=== PATIENT | female | born 1970 | race Caucasian/White ===

== ENCOUNTER 2019-11-13 19:29 | Observation (INO) | payer MEDICARE, OTHER ==
[2019-11-13] MEDS ORDERED: ASPIRIN 81 MG PO STA (19:46)
[2019-11-13] MEDS ORDERED: SODIUM CHLORIDE 0.9% 1,000 ML IV ONE (19:47)
--- NOTE | 2019-11-13 19:53 | ED ---
General Adult HPI - General Chief complaint: Chest Pain Stated complaint: Chest Pain Time Seen by Provider: 11/13/19 19:33 Source: patient, EMS Mode of arrival: EMS Limitations: no limitations - History of Present Illness Initial comments: Patient presents the ED by ambulance for evaluation. Patient states that she has had intermittent rapid heart palpitations for the past 2 days, and she states that she has had associated chest "discomfort". Patient denies having any "pain". Patient admits to feeling mildly dyspneic as well. Patient appears to be intoxicated on arrival to the ED, and she admits to drinking alcohol tonight, stating that she has been "celebrating Robinson" with her family. Patient denies trauma or injury, fever or chills, headache, focal numbness/weakness/neuro deficit, neck/arm/jaw/back pain, pleuritic pain, cough or cold symptoms, palpitations, dizziness, nausea or vomiting, abdominal pain, diarrhea, urinary symptoms, leg or calf swelling or pain, illicit drug use, medication abuse or overdose, or any other symptoms or complaints. - Related Data Allergies Allergy/AdvReac Type Severity Reaction Status Date / Time Penicillins Allergy Severe Swelling Verified 11/13/19 20:07 metoclopramide [From Reglan] Allergy Mild Unknown Verified 11/13/19 20:09 buspirone Allergy Unknown Verified 11/13/19 20:10 codeine Allergy Unknown Verified 11/13/19 20:10 varenicline [From Chantix] Allergy Unknown Verified 11/13/19 20:10 Review of Systems ROS Statement: Those systems with pertinent positive or pertinent negative responses have been documented in the HPI. ROS Other: All systems not noted in ROS Statement are negative. Past Medical History Additional Past Medical History / Comment(s): Right coronary artery dissection, mitochondrial myopathy, seizure disorder Past Surgical History: Heart Catheterization Smoking Status: Current every day smoker Past Alcohol Use History: Occasional Past Drug Use History: None Reported General Exam Limitations: no limitations General appearance: alert, appears intoxicated, anxious, other (Patient smells of alcohol; patient is tearful) Head exam: Present: atraumatic, normocephalic Eye exam: Present: PERRL, EOMI ENT exam: Present: mucous membranes moist Neck exam: Present: other (Trachea is in midline) Respiratory exam: Present: normal lung sounds bilaterally. Absent: respiratory distress, wheezes, rales, rhonchi, chest wall tenderness Cardiovascular Exam: Present: regular rate, normal rhythm, normal heart sounds, other (Normal radial pulses bilaterally) GI/Abdominal exam: Present: soft. Absent: distended, tenderness, guarding Extremities exam: Present: other (Negative Diane's sign bilaterally). Absent: tenderness, pedal edema, calf tenderness Neurological exam: Present: alert, oriented X3. Absent: motor sensory deficit Psychiatric exam: Present: anxious Skin exam: Present: warm, dry, intact, normal color Course Vital Signs 11/13/19 19:32 Temperature 98.5 F Pulse Rate 92 Respiratory 18 Rate Blood Pressure 182/123 O2 Sat by Pulse 94 L Oximetry - Reevaluation(s) Reevaluation #1: 11/13/19 20:25 Case, H&P, test results and ED management thus far were discussed with Dr. Key who is currently in the ED. He accepts observational admission. He has no f urther recommendations at this time. 11/13/19 20:35 Patient denies vomiting of any new symptoms while in the ED. Patient remains alert and breathing comfortably with a normal room air oxygen saturation. Patient remains in normal sinus rhythm on the hospital monitor. Patient is aware of her test results, and she agrees with hospital admission at this time. EKG Findings - EKG Comments: EKG Findings:: Normal sinus rhythm, ventricular rate of 92 bpm, no ectopy, normal MD and QRS intervals, normal QT interval, normal axis, no ST or T-wave abnormality Medical Decision Making - Medical Decision Making Given the patient's reported palpitations and chest discomfort, will admit the patient the hospital for cardiac monitoring and serial troponins. Patient's initial troponin the ED is negative. Patient's EKG, labs and chest x-ray are all fairly unremarkable. Patient agrees with this plan, and Dr. Key has accepted hospital admission. - Lab Data Result diagrams: 11/13/19 19:48 11/13/19 19:48 Lab Results 11/13/19 11/13/19 11/13/19 Range/Units 19:48 19:48 19:48 WBC 8.7 (3.8-10.6) k/uL RBC 4.91 (3.80-5.40) m/uL Hgb 15.0 (11.4-16.0) gm/dL Hct 46.6 H (34.0-46.0) % MCV 94.9 (80.0-100.0) fL MCH 30.7 (25.0-35.0) pg MCHC 32.3 (31.0-37.0) g/dL RDW 13.6 (11.5-15.5) % Plt Count 237 (150-450) k/uL Neutrophils % 61 % Lymphocytes % 29 % Monocytes % 5 % Eosinophils % 3 % Basophils % 1 % Neutrophils # 5.3 (1.3-7.7) k/uL Lymphocytes # 2.5 (1.0-4.8) k/uL Monocytes # 0.4 (0-1.0) k/uL Eosinophils # 0.2 (0-0.7) k/uL Basophils # 0.1 (0-0.2) k/uL PT 9.7 (9.0-12.0) sec INR 0.9 (<1.2) APTT 25.1 (22.0-30.0) sec Sodium 142 (137-145) mmol/L Potassium 4.0 (3.5-5.1) mmol/L Chloride 110 H (98-107) mmol/L Carbon Dioxide 20 L (22-30) mmol/L Anion Gap 12 mmol/L BUN 11 (7-17) mg/dL Creatinine 0.84 (0.52-1.04) mg/dL Est GFR (CKD-EPI)AfAm >90 (>60 ml/min/1.73 sqM) Est GFR (CKD-EPI)NonAf 81 (>60 ml/min/1.73 sqM) Glucose 95 (74-99) mg/dL Calcium 9.6 (8.4-10.2) mg/dL Magnesium 2.0 (1.6-2.3) mg/dL Total Bilirubin 0.4 (0.2-1.3) mg/dL AST 49 H (14-36) U/L ALT 21 (4-34) U/L Alkaline Phosphatase 73 (38-126) U/L Total Protein 7.2 (6.3-8.2) g/dL Albumin 4.4 (3.5-5.0) g/dL Serum Alcohol 46 mg/dL - Radiology Data Radiology results: image reviewed (Chest x-ray is negative) Disposition Clinical Impression: Chest pain, Palpitations, Alcohol abuse Disposition: ADMITTED IP TO THIS HOSP Condition: Stable Is patient prescribed a controlled substance at d/c from ED?: No Referrals: Kvng Rm MD [Primary Care Provider] - 1-2 days Time of Disposition: 20:25
[2019-11-13 20:12] LABS: Basophils # (A) 0.1 k/uL (0-0.2); Basophils % (A) 1 %; Eosinophils # (A) 0.2 k/uL (0-0.7); Eosinophils % (A) 3 %; HCT 46.6 % (34.0-46.0); Lymphocytes # (A) 2.5 k/uL (1.0-4.8); Lymphocytes % (A) 29 %; MCH 30.7 pg (25.0-35.0); MCHC 32.3 g/dL (31.0-37.0); MCV 94.9 fL (80.0-100.0); Mean Platelet Volume 8.1; Monocytes # (A) 0.4 k/uL (0-1.0); Monocytes % (A) 5 %; Neutrophils # (A) 5.3 k/uL (1.3-7.7); Neutrophils % (A) 61 %; Platelet Count 237 k/uL (150-450); RBC 4.91 m/uL (3.80-5.40); RDW 13.6 % (11.5-15.5); WBC 8.7 k/uL (3.8-10.6)
[2019-11-13 20:17] LABS: ALT 21 U/L (4-34); AST 49 U/L (14-36); African American GFR (CKD) >90 (>60 ml/min/1.73 sqM); Albumin 4.4 g/dL (3.5-5.0); Alcohol 46 mg/dL; Alkaline Phosphatase 73 U/L (38-126); Anion Gap 12 mmol/L; Blood Urea Nitrogen 11 mg/dL (7-17); Calcium 9.6 mg/dL (8.4-10.2); Carbon Dioxide 20 mmol/L (22-30); Chloride 110 mmol/L (98-107); Glucose 95 mg/dL (74-99); Non-African American GFR(CKD) 81 (>60 ml/min/1.73 sqM); Sodium 142 mmol/L (137-145); Total Bilirubin 0.4 mg/dL (0.2-1.3); Total Protein 7.2 g/dL (6.3-8.2)
[2019-11-13 20:23] LABS: INR 0.9 (<1.2); Partial Thromboplastin Time 25.1 sec (22.0-30.0); Prothrombin Time 9.7 sec (9.0-12.0)
--- NOTE | 2019-11-13 20:30 | XR ---
EXAMINATION TYPE: XR chest 2V DATE OF EXAM: 11/13/2019 COMPARISON: NONE HISTORY: Chest pain TECHNIQUE: 2 views FINDINGS: Heart and mediastinum are normal. Lungs are clear. Diaphragm is normal. Bony thorax appears normal. IMPRESSION: Normal chest
[2019-11-13] MEDS ORDERED: SODIUM CHLORIDE 0.9% 1,000 ML IV SCH (20:45)
[2019-11-14 00:01] VITALS: RESP 18
[2019-11-14] MEDS ORDERED: SYMBICORT 160-4.5 MCG INHALER INHALATION PRN (01:15)
[2019-11-14] MEDS ORDERED: ALPRAZolam 0.5 MG TAB PO PRN (01:15)
--- NOTE | 2019-11-14 01:17 | P.HPIM ---
History of Present Illness H&P Date: 11/14/19 Patient is a 49-year-old female with a PMH of mitochondrial myopathy, right coronary artery dissection (March 2018), seizure disorder, HTN, anxiety, and depression presented to the ED with complaints of palpitations and chest discomfort ongoing for the past 2-3 days. Patient notes that her symptoms s tarted roughly 3 days ago when she began having intermittent palpitations. The palpitations would last for a few minutes at a time, occurring every few hours and were not bothersome initially. Patient states that earlier tonight she was celebrating [place] with her family and noted left-sided chest discomfort, pressure-like, nonradiating, with some associated shortness of breath, though sh e notes it could be due to her anxiety. She otherwise denied cough, fever, chills, abdominal pain, nausea, diaphoresis, dizziness, headaches, neck pain, recent travel. The patient reports drinking only on social occasions, roughly once a month with 2-3 shots. She reports having 3 shots of alcohol earlier tonight. At time of interview, she reported 2-3 out of 10 left-sided chest discomfort with no associated features. She underwent an extensive elevation in the emergency room with chest x-ray which was unremarkable, and EKG showing normal sinus rhythm at 92 bpm. Laboratory evaluation revealed a troponin level less than 0.012, BNP 633, serum alcohol level 46, WBC count 8.7, hemoglobin 15, and platelets 237. She was admitted to the medicine service under observation status for chest pain. Review of Systems Pertinent positives and negatives as discussed in HPI, a complete review of systems was performed and all other systems are negative. Past Medical History Past Medical History: Myocardial Infarction ([place]) Additional Past Medical History / Comment(s): Right coronary artery dissection, mitochondrial myopathy, seizure disorder, Malignant Hyperthermia Last Myocardial Infarction Date:: 2017 History of Any Multi-Drug Resistant Organisms: None Reported Past Surgical History: Heart Catheterization Past Anesthesia/Blood Transfusion Reactions: Malignant Hyperthermia Additional Past Anesthesia/Blood Transfusion Reaction / Comment(s): MALIGNANT HYPERTHERMIA Past Psychological History: Depression Smoking Status: Current every day smoker Past Alcohol Use History: Occasional Past Drug Use History: None Reported Medications and Allergies Home Medications Medication Instructions Recorded Confirmed Type ALPRAZolam [Xanax] 0.5 mg PO BID PRN 11/13/19 11/13/19 History Budesonide-Formot 160-4.5 Mcg 2 puff INHALATION RT-BID PRN 11/13/19 11/13/19 History [Symbicort 160-4.5 Mcg Inhaler] DULoxetine HCL [Cymbalta] 60 mg PO DAILY 11/13/19 11/13/19 History Ezetimibe [Zetia] 10 mg PO DAILY 11/13/19 11/13/19 History Famotidine [Pepcid] 20 mg PO BID 11/13/19 11/13/19 History Fluticasone Nasal [place] [Flonase 1 spray EA NOSTRIL DAILY PRN 11/13/19 11/13/19 History Nasal [place]] Folic Acid 1 mg PO DAILY 11/13/19 11/13/19 History Lisinopril 40 mg PO DAILY 11/13/19 11/13/19 History Metoprolol Tartrate [Lopressor] 50 mg PO BID 11/13/19 11/13/19 History Pregabalin [Lyrica] 150 mg PO BID 11/13/19 11/13/19 History levETIRAcetam 1,000 mg PO Q12HR 11/13/19 11/13/19 History levOCARNitine [Levocarnitine] 330 mg PO TID 11/13/19 11/13/19 History Allergies Allergy/AdvReac Type Severity Reaction Status Date / Time Penicillins Allergy Severe Swelling Verified 11/13/19 20:54 metoclopramide [From Reglan] Allergy Mild Unknown Verified 11/13/19 20:54 buspirone Allergy Unknown Verified 11/13/19 20:54 codeine Allergy Unknown Verified 11/13/19 20:54 varenicline [From Chantix] Allergy Unknown Verified 11/13/19 20:54 Physical Exam Vitals: Vital Signs Temp Pulse Pulse Resp BP BP Pulse Ox 11/14/19 00:00 97.6 F 70 18 172/89 95 11/13/19 22:10 97.7 F 72 16 164/113 96 11/13/19 20:59 85 18 160/101 98 11/13/19 20:46 97.7 F 72 16 96 11/13/19 19:32 98.5 F 92 18 182/123 94 L Intake and Output 11/13/19 11/13/19 11/14/19 14:59 22:59 06:59 Intake Total 240 Balance 240 Intake: Oral 240 Other: # Voids 1 Weight 80.739 kg General: non toxic, no distress, appears at stated age, obese Derm: no unusual rashes/lesions no unusual ecchymoses, warm, dry Head: atraumatic, normocephalic, symmetric Eyes: EOMI, no lid lag, anicteric sclera, pupils equal round reactive to light ENT: Nose and ears atraumatic, no thrush, no pharyngeal erythema Neck: No thyromegaly, no cervical lymphadenopathy, trachea midline, supple Mouth: no lip lesion, mucus membranes moist Cardiovascular: S1S2 reg, no murmur, positive posterior tibial pulse bilateral, no edema, capillary refill less than 2 seconds Lungs: CTA bilateral, no rhonchi, no rales , no accessory muscle use Abdominal: soft, nontender to palpation, no guarding, no appreciable organomegaly, normal bowel sounds Ext: no gross muscle atrophy, muscle strength 5 out of 5 in all 4 extremities grossly, no contractures, Neuro: CN II-XI grossly intact, light touch intact all 4 extremities, finger to nose within normal limits, Psych: Alert, oriented, appropriate affect Results CBC & Chem 7: 11/13/19 19:48 11/13/19 19:48 Labs: Abnormal Lab Results - Last 24 Hours (Table) 11/13/19 11/13/19 Range/Units 19:48 19:48 Hct 46.6 H (34.0-46.0) % Chloride 110 H (98-107) mmol/L Carbon Dioxide 20 L (22-30) mmol/L AST 49 H (14-36) U/L Thrombosis Risk Factor Assmnt - Choose All That Apply Any of the Below Risk Factors Present?: Yes Each Factor Represents 1 point: Age 41-60 years, Obesity (BMI >25) Thrombosis Risk Factor Assessment Total Risk Factor Score: 2 Thrombosis Risk Factor Assessment Level: Low Risk Assessment and Plan Plan: Chest pain, r/o ACS -Cardiology consult -Cardiac monitoring -Trend troponin and EKG -Echocardiogram Mitochondrial myopathy -Patient will need outpatient follow-up at a tertiary center Chronic conditions: Seizure disorder, hypertension, anxiety -Continue with home meds DVT prophylaxis -Heparin The patient is admitted with an anticipated less than 2 midnight stay for evaluation of chest pain CODE STATUS: Full Code Discussed with: Patient Anticipated discharge date: 1-[address]: Home A total of 35 minutes was spent on the care of this complex patient more than 50% of the time was spent in counseling and care coordination.
[2019-11-14] MEDS ORDERED: ONDANSETRON 4 MG/2 ML VIAL IVP PRN (01:42)
[2019-11-14 07:33] LABS: Basophils # (A) 0.1 k/uL (0-0.2); Basophils % (A) 1 %; Eosinophils # (A) 0.2 k/uL (0-0.7); Eosinophils % (A) 3 %; HCT 46.5 % (34.0-46.0); Lymphocytes # (A) 1.7 k/uL (1.0-4.8); Lymphocytes % (A) 22 %; MCH 31.2 pg (25.0-35.0); MCHC 32.2 g/dL (31.0-37.0); MCV 96.9 fL (80.0-100.0); Mean Platelet Volume 8.2; Monocytes # (A) 0.4 k/uL (0-1.0); Monocytes % (A) 5 %; Neutrophils % (A) 66 %; Platelet Count 258 k/uL (150-450); RDW 13.7 % (11.5-15.5); WBC 7.5 k/uL (3.8-10.6)
[2019-11-14 07:40] VITALS: BP 144/105; PULSE 81; TEMP 98.2
[2019-11-14 07:57] LABS: ALT 20 U/L (4-34); AST 32 U/L (14-36); African American GFR (CKD) >90 (>60 ml/min/1.73 sqM); Albumin 3.9 g/dL (3.5-5.0); Alkaline Phosphatase 70 U/L (38-126); Anion Gap 8 mmol/L; Blood Urea Nitrogen 14 mg/dL (7-17); Calcium 9.4 mg/dL (8.4-10.2); Carbon Dioxide 20 mmol/L (22-30); Chloride 112 mmol/L (98-107); Glucose 96 mg/dL (74-99); Non-African American GFR(CKD) >90 (>60 ml/min/1.73 sqM); Potassium 4.7 mmol/L (3.5-5.1); Sodium 140 mmol/L (137-145); Total Bilirubin 0.5 mg/dL (0.2-1.3); Total Protein 6.8 g/dL (6.3-8.2)
[2019-11-14] MEDS ORDERED: HEPARIN SODIUM,PORCINE 5,000 UNIT/ML 1 ML VIAL SQ SCH (08:00)
[2019-11-14] MEDS ORDERED: PREGABALIN 75 MG CAP PO SCH (09:00)
[2019-11-14] MEDS ORDERED: levOCARNitine (WITH SUGAR) 100 MG/ML BOTTLE PO SCH (09:00)
[2019-11-14] MEDS ORDERED: METOPROLOL TARTRATE 50 MG TAB PO SCH (09:00)
[2019-11-14] MEDS ORDERED: EZETIMIBE 10 MG TAB PO SCH (09:00)
[2019-11-14] MEDS ORDERED: DULoxetine HCL 60 MG CAPSULE.DR PO SCH (09:00)
[2019-11-14] MEDS ORDERED: FOLIC ACID 1 MG TAB PO SCH (09:00)
[2019-11-14] MEDS ORDERED: LISINOPRIL 20 MG TAB PO SCH (09:00)
[2019-11-14] MEDS ORDERED: FAMOTIDINE 20 MG TAB PO SCH (09:00)
[2019-11-14] MEDS ORDERED: levETIRAcetam 500 MG TAB PO SCH (09:00)
[2019-11-14] MEDS ORDERED: FLUTICASONE 50MCG/SPRAY NASAL 16GM EA NOSTRIL PRN (09:00)
[2019-11-14] MEDS ORDERED: ASPIRIN 81 MG PO SCH (09:30)
[2019-11-14] MEDS ORDERED: HYDROCHLOROTHIAZIDE 25 MG TAB PO SCH (09:30)
--- NOTE | 2019-11-14 21:55 | CONS ---
CONSULTATION Mrs. Page is a 49-year-old female with known history of hypertension, history of hyperlipidemia, tobacco use and sudden coronary dissection last year. At that time underwent cardiac catheterization at [facility], was found to have a coronary dissection in the right coronary artery, was treated medically. Yesterday, she has had episode of discomfort, left-sided, and noted that her blood pressure was elevated, came into the emergency room and subsequently admitted. The patient is quite anxious and teary during the examination. She has been followed by Dr. Hancock. According to her when she is active physically she feels okay, although at times she is dyspneic at rest. She has occasional peripheral edema. No dizziness. No palpitation. No nausea. She has occasional palpitations. She has a long-standing history of hypertension. She has no PND or orthopnea. She is not quite sure if she had significant impairment in the systolic function after her event about a year and half ago. Her coronary risk factors are positive for the history of hypertension, hyperlipidemia, and smoking. She is a non diabetic. MEDICATION: Her medications at home include Lyrica, Pepcid, Symbicort, Xanax, Lopressor 50 mg twice a day, Keppra, lisinopril 40 mg daily, Zetia 10 mg daily, and Cymbalta 60 mg daily. REVIEW OF SYSTEMS: Respiratory system: She has mild dyspnea on exertion. No recent wheezing or cough. GI system: No recent GI bleed, no peptic ulcer disease. system: No dysuria, hematuria. Nervous system: She has history of seizure. PHYSICAL EXAMINATION: 49-year-old female, teary, anxious. Blood pressure 144/105, blood pressure earlier it was in the 170s. Heart rate in 70s. HEAD: Normocephalic. EYES: Sclerae anicteric. NECK: Good carotid upstroke, no bruit. No jugular venous distention. LUNGS: Clear to auscultation. HEART: Regular rhythm. S1, S2. No S3. No S4. No murmur or rub. ABDOMEN: Soft, nontender. Positive bowel sounds. No megaly. EXTREMITIES: No edema. Intact pulses. LAB DATA: Revealed troponin less than 0.012 for 3 samples. BUN and creatinine 14 and 0.71. Hemoglobin of 15, white blood cell of 7.5. Her serum alcohol is 46. Her EKG revealed a sinus mechanism, normal axis, intervals with minor nonspecific ST-T wave changes. Her chest x-ray shows no acute infiltrate. IMPRESSION: 1. Chest discomfort atypical for ischemic heart disease, probably noncardiac. 2. History of spontaneous dissection of the right coronary artery in March 2018. 3. Hypertension. 4. Anxiety. 5. History of seizure disorder. RECOMMENDATION: From the cardiac standpoint, I will add hydrochlorothiazide 25 mg daily to her regimen, increase her level of activity. If she is stable, she should be able to be discharged home today and follow up as an outpatient with Dr. Hancock. Thank you for this consult. We will follow with you. [id number] / IJN: [id number] /
--- NOTE | 2019-12-12 20:47 | P.DS ---
Providers Date of admission: 11/13/19 20:33 Expected date of discharge: 11/14/19 Attending physician: Farheen Key MD Consults: 11/13/19 21:30 Consult Physician Urgent Consulting Provider: Scott Vanegas Consult Reason/Comments: chest pain, palpitations Do you want consulting provider notified?: Yes Primary care physician: Kvng Rm [facility] Course: diagnosis discharge diagnoses Atypical chest pain Essential hypertension Anxiety History of seizure disorder History of dissection of right coronary artery Hospital course The patient is a 49 year old female with a known history of hypertension hyperlipidemia and tobacco use disorder who presented with atypical chest pain inobservation with need to rule out ACS, troponins were less than 0.0123, EKG reveals sinus mechanism with minor nonspecific ST-T wave changes, the patient was seen by Dr. Christopher brooke cardiology and cleared for discharge. HCTZ was added to her and hypertensive regimen and she was discharged home in stable condition, this discharge process took approximately 30 minutes Focused exam Cardiovascular : Regular rate and rhythm no murmurs rubs or gallops Patient Condition at Discharge: Stable Plan - Discharge Summary Discharge Rx Participant: No New Discharge Prescriptions: Continue Pregabalin [Lyrica] 150 mg PO BID Folic Acid 1 mg PO DAILY Budesonide-Formot 160-4.5 Mcg [Symbicort 160-4.5 Mcg Inhaler] 2 puff INHALATION RT-BID PRN PRN Reason: Shortness Of Breath Metoprolol Tartrate [Lopressor] 50 mg PO BID levOCARNitine [Levocarnitine] 330 mg PO TID levETIRAcetam 1,000 mg PO Q12HR Lisinopril 40 mg PO DAILY Fluticasone Nasal [place] [Flonase Nasal [place]] 1 spray EA NOSTRIL DAILY PRN PRN Reason: Nasal Congestion Famotidine [Pepcid] 20 mg PO BID Ezetimibe [Zetia] 10 mg PO DAILY DULoxetine HCL [Cymbalta] 60 mg PO DAILY ALPRAZolam [Xanax] 0.5 mg PO BID PRN PRN Reason: Anxiety Discharge Medication List ALPRAZolam [Xanax] 0.5 mg PO BID PRN 11/13/19 [History] Budesonide-Formot 160-4.5 Mcg [Symbicort 160-4.5 Mcg Inhaler] 2 puff INHALATION RT-BID PRN 11/13/19 [History] DULoxetine HCL [Cymbalta] 60 mg PO DAILY 11/13/19 [History] Ezetimibe [Zetia] 10 mg PO DAILY 11/13/19 [History] Famotidine [Pepcid] 20 mg PO BID 11/13/19 [History] Fluticasone Nasal [place] [Flonase Nasal [place]] 1 spray EA NOSTRIL DAILY PRN 11/13/19 [History] Folic Acid 1 mg PO DAILY 11/13/19 [History] Lisinopril 40 mg PO DAILY 11/13/19 [History] Metoprolol Tartrate [Lopressor] 50 mg PO BID 11/13/19 [History] Pregabalin [Lyrica] 150 mg PO BID 11/13/19 [History] levETIRAcetam 1,000 mg PO Q12HR 11/13/19 [History] levOCARNitine [Levocarnitine] 330 mg PO TID 11/13/19 [History] Follow up Appointment(s)/Referral(s): Kvng Rm MD [Primary Care Provider] - 1-2 days Lazara Hancock MD [STAFF PHYSICIAN] - 1 Week (office is closed, patient is to call office during office hours and make follow up apointment with HARVEY Hancock ) Patient Instructions/Handouts: Chest Pain (DC) Discharge Disposition: HOME SELF-CARE
== END 2019-11-14 10:38 | disposition home or self-care (01) ==
LOC: EC 19:29 → 1SOBS 20:33
PROVIDERS: ADMIT Internal Medicine; ATTEND Internal Medicine
DX: R07.89 Other chest pain (principal); I10 Essential (primary) hypertension; F41.9 Anxiety disorder, unspecified; G40.909 Epilepsy, unspecified, not intractable, without status epilepticus; Z86.79 Personal history of other diseases of the circulatory system; G71.3 Mitochondrial myopathy, not elsewhere classified; E78.5 Hyperlipidemia, unspecified; F17.200 Nicotine dependence, unspecified, uncomplicated; F32.9 Major depressive disorder, single episode, unspecified; I25.2 Old myocardial infarction; E66.9 Obesity, unspecified; Z68.30 Body mass index [BMI] 30.0-30.9, adult; Z88.0 Allergy status to penicillin; Z88.8 Allergy status to other drugs, medicaments and biological substances; Z88.5 Allergy status to narcotic agent; Z79.899 Other long term (current) drug therapy; Z79.51 Long term (current) use of inhaled steroids; Z88.4 Allergy status to anesthetic agent; Z98.890 Other specified postprocedural states
CPT/HCPCS: 93005 ×2; 96372; 99285; 36415; 83880; 80053 ×2; 83735; 84484 ×2; 85025 ×2; 85610; 85730; 71046; G0378 ×2; G0480; J1644; 80320

== ENCOUNTER 2020-05-21 23:46 | Observation (INO) | payer MEDICARE, OTHER ==
[2020-05-21 23:55] VITALS: RESP 18
--- NOTE | 2020-05-21 23:57 | ED ---
Chest Pain HPI - General Chief Complaint: Chest Pain Stated Complaint: chest pain Time Seen by Provider: 05/21/20 23:51 Source: patient, EMS Mode of arrival: EMS Limitations: no limitations - History of Present Illness Initial Comments: This patient is a 50-year-old woman who transfers here from [facility] to have admission and further evaluation for chest pain. The patient states that her symptoms had started approximately 3 days ago with vomiting and also intermittent substernal chest pains. Patient states that she has history of right coronary artery dissection in 2018, which was treated at [facility]. She states that as the symptoms were continuing without much relief she went to [facility]. The patient had a workup there that included a CT angiogram, read as only showing some emphysema and pulmonary fibrosis. Patient also had labs that showed a CBC that showed mildly elevated hemoglobin at 16.7. Chemistries that showed hypokalemia at 2.6. The BUN to creatinine was mildly elevated, at 21 suggestive of some dehydration. Mildly elevated transaminases, AST 61, ALT 53. The patient did have Rocephin and azithromycin for concerns about pneumonia, though she is denying fevers and chills. The patient did have heparin bolus. The patient had Dilaudid. She is symptom-free here. MD Complaint: chest pain Onset/Timin -: days(s) Onset: during rest Pain Location: substernal Pain Radiation: none Severity: severe Quality: aching Consistency: intermittent Improves With: nothing Worsens With: nothing Anginal Symptoms: nausea, vomiting Treatments Prior to Arrival: nitroglycerin, other (Heparin) - Related Data Home Medications Medication Instructions Recorded Confirmed ALPRAZolam [Xanax] 0.5 mg PO TID PRN 11/13/19 05/22/20 Budesonide-Formot 160-4.5 Mcg 2 puff INHALATION RT-BID PRN 11/13/19 05/22/20 [Symbicort 160-4.5 Mcg Inhaler] DULoxetine HCL [Cymbalta] 60 mg PO DAILY 11/13/19 05/22/20 Ezetimibe [Zetia] 10 mg PO DAILY 11/13/19 05/22/20 Pregabalin [Lyrica] 150 mg PO BID 11/13/19 05/22/20 levETIRAcetam 1,000 mg PO Q12HR 11/13/19 05/22/20 levOCARNitine [Levocarnitine] 330 mg PO TID 11/13/19 05/22/20 Albuterol Sulfate [Albuterol 2 puff INHALATION RT-Q6H PRN 05/22/20 05/22/20 Sulfate Hfa] Aspirin EC [Ecotrin Low Dose] 81 mg PO DAILY 05/22/20 05/22/20 Hydrochlorothiazide [Hydrodiuril] 25 mg PO DAILY 05/22/20 05/22/20 Metoprolol Tartrate [Lopressor] 25 mg PO BID 05/22/20 05/22/20 Nitroglycerin Sl Tabs [Nitrostat] 0.4 mg SUBLINGUAL Q5M PRN 05/22/20 05/22/20 Ondansetron Odt [Zofran Odt] 8 mg PO Q8HR PRN 05/22/20 05/22/20 Pregabalin [Lyrica] 150 mg PO DAILY PRN 05/22/20 05/22/20 Ubidecarenone [Co Q-10] 200 mg PO TID 05/22/20 05/22/20 Allergies Allergy/AdvReac Type Severity Reaction Status Date / Time Penicillins Allergy Severe Swelling Verified 05/22/20 08:56 metoclopramide [From Reglan] Allergy Mild Unknown Verified 05/22/20 08:56 buspirone Allergy Unknown Verified 05/22/20 08:56 codeine Allergy Unknown Verified 05/22/20 08:56 varenicline [From Chantix] Allergy Unknown Verified 05/22/20 08:56 Review of Systems ROS Statement: Those systems with pertinent positive or pertinent negative responses have been documented in the HPI. ROS Other: All systems not noted in ROS Statement are negative. EKG Findings - EKG Comments: EKG Findings:: T inversions in leads 3 and aVF, possible inferior ischemia - EKG Results: EKG: interpreted by ERMD, sinus rhythm (Rate 95 bpm), normal axis, normal QRS - Blocks, [place], Hypertrophy, ST Abn: Repolarization changes or abnormalities: Q-T interval prolongation Past Medical History Past Medical History: Coronary Artery Disease (CAD), Chest Pain / Angina, Myocardial Infarction ([place]) Additional Past Medical History / Comment(s): Right coronary artery dissection, mitochondrial myopathy, seizure disorder, Malignant Hyperthermia Last Myocardial Infarction Date:: 2018 History of Any Multi-Drug Resistant Organisms: None Reported Past Surgical History: Cholecystectomy, Heart Catheterization, Tubal Ligation Additional Past Surgical History / Comment(s): carpal tunnel Past Anesthesia/Blood Transfusion Reactions: Malignant Hyperthermia Additional Past Anesthesia/Blood Transfusion Reaction / Comment(s): MALIGNANT HYPERTHERMIA Past Psychological History: Anxiety, Depression Smoking Status: Current every day smoker Past Alcohol Use History: Abuse, Daily Past Drug Use History: None Reported - Past Family History Father Additional Family Medical History / Comment(s): Myotonia congenita Mother Family Medical History: No Reported History Additional Family Medical History / Comment(s): Grandmother had CVA General Exam Limitations: no limitations General appearance: alert, in no apparent distress Head exam: Present: atraumatic, normocephalic Eye exam: Present: normal appearance. Absent: scleral icterus, conjunctival injection ENT exam: Present: mucous membranes dry Neck exam: Present: normal inspection Respiratory exam: Present: normal lung sounds bilaterally. Absent: respiratory distress, wheezes, rales, rhonchi, stridor Cardiovascular Exam: Present: regular rate, normal rhythm, normal heart sounds. Absent: systolic murmur, diastolic murmur, rubs, gallop GI/Abdominal exam: Present: soft. Absent: distended, tenderness, guarding, rebound, rigid, mass Extremities exam: Present: normal inspection, normal capillary refill. Absent: pedal edema, calf tenderness Back exam: Present: normal inspection. Absent: CVA tenderness (R), CVA tenderness (L) Neurological exam: Present: alert Skin exam: Present: warm, dry, intact, normal color. Absent: rash Course Vital Signs 05/21/20 05/22/20 05/22/20 23:46 02:34 04:17 Temperature 97.8 F Pulse Rate 94 81 84 Respiratory 18 18 18 Rate Blood Pressure 127/88 110/57 114/74 O2 Sat by Pulse 97 99 94 L Oximetry 05/22/20 05/22/20 05/22/20 06:48 07:36 08:14 Temperature 98.1 F Pulse Rate 93 85 Respiratory 18 18 18 Rate Blood Pressure 112/54 129/83 120/78 O2 Sat by Pulse 98 98 99 Oximetry 05/22/20 05/22/20 10:55 14:44 Temperature 98.3 F Pulse Rate 92 104 H Respiratory 18 18 Rate Blood Pressure 124/81 116/100 O2 Sat by Pulse 98 96 Oximetry Chest Pain MDM - MDM This patient is a 50-year-old woman transferred here from [facility]. My understanding is that Dr. Hannon had taken the transfer call and discussed with Dr. Slaughter. If the patient was having any symptoms they were considering taking patient to [facility]. I discussed this with the patient who is adamant that she is not having symptoms. She was reminded to inform nursing staff should symptoms recur. Admission for further monitoring and serial enzymes arranged. Case discussed with cardiology and the patient is admitted for serial cardiac enzymes and telemetry monitoring. Critical Care Time Critical Care Time: Yes (35 minutes) Disposition Clinical Impression: Chest pain Disposition: ADMITTED IP TO THIS HOSP Condition: Undetermined Is patient prescribed a controlled substance at d/c from ED?: No
[2020-05-22 00:06] LABS: Basophils # (A) 0.1 k/uL (0-0.2); Basophils % (A) 1 %; Eosinophils # (A) 0.2 k/uL (0-0.7); Eosinophils % (A) 2 %; HCT 43.7 % (34.0-46.0); HGB 14.6 gm/dL (11.4-16.0); Lymphocytes # (A) 2.6 k/uL (1.0-4.8); Lymphocytes % (A) 27 %; MCH 32.6 pg (25.0-35.0); MCHC 33.5 g/dL (31.0-37.0); MCV 97.3 fL (80.0-100.0); Mean Platelet Volume 8.5; Monocytes # (A) 0.6 k/uL (0-1.0); Monocytes % (A) 6 %; Neutrophils # (A) 6.1 k/uL (1.3-7.7); Neutrophils % (A) 62 %; Platelet Count 243 k/uL (150-450); RBC 4.49 m/uL (3.80-5.40); RDW 13.5 % (11.5-15.5); WBC 9.8 k/uL (3.8-10.6)
[2020-05-22 00:29] LABS: INR 1.1 (<1.2); Prothrombin Time 11.1 sec (9.0-12.0)
[2020-05-22 00:31] LABS: ALT 45 U/L (4-34); AST 55 U/L (14-36); African American GFR (CKD) >90 (>60 ml/min/1.73 sqM); Albumin 3.8 g/dL (3.5-5.0); Alkaline Phosphatase 87 U/L (38-126); Anion Gap 11 mmol/L; Blood Urea Nitrogen 17 mg/dL (7-17); Calcium 9.1 mg/dL (8.4-10.2); Carbon Dioxide 22 mmol/L (22-30); Chloride 103 mmol/L (98-107); Glucose 121 mg/dL (74-99); Magnesium 2.3 mg/dL (1.6-2.3); Non-African American GFR(CKD) 90 (>60 ml/min/1.73 sqM); Sodium 136 mmol/L (137-145); Total Bilirubin 0.3 mg/dL (0.2-1.3); Total Protein 6.7 g/dL (6.3-8.2)
[2020-05-22 00:41] LABS: Partial Thromboplastin Time 125.7 sec (22.0-30.0)
[2020-05-22] MEDS ORDERED: NITROGLYCERIN SL TABS 0.4 MG TAB SUBLINGUAL PRN ×2 (00:58→09:39)
[2020-05-22] MEDS: SODIUM CHLORIDE 0.9% 1,000 ML IV SCH ×2 (01:03→11:06)
[2020-05-22] MEDS ORDERED: ONDANSETRON 4 MG/2 ML VIAL IVP STA (07:41)
[2020-05-22] MEDS ORDERED: PREGABALIN 75 MG CAP PO PRN (09:39)
[2020-05-22] MEDS ORDERED: ONDANSETRON ODT 8 MG TAB.RAPDIS PO PRN (09:39)
[2020-05-22] MEDS ORDERED: ALBUTEROL HFA INHALER INHALATION PRN (09:39)
[2020-05-22] MEDS ORDERED: SYMBICORT 160-4.5 MCG INHALER INHALATION PRN (09:39)
[2020-05-22] MEDS ORDERED: ALPRAZolam 0.5 MG TAB PO PRN (09:39)
[2020-05-22] MEDS ORDERED: METOPROLOL TARTRATE 25 MG TAB PO SCH (09:45)
[2020-05-22] MEDS ORDERED: DULoxetine HCL 60 MG CAPSULE.DR PO SCH (09:45)
[2020-05-22] MEDS ORDERED: EZETIMIBE 10 MG TAB PO SCH (09:45)
[2020-05-22] MEDS ORDERED: PREGABALIN 75 MG CAP PO SCH (09:45)
[2020-05-22] MEDS ORDERED: levETIRAcetam 500 MG TAB PO SCH (09:45)
--- NOTE | 2020-05-22 11:58 | ECHOF ---
Referral Reason:cp, sob, n/v MEASUREMENTS -------- HEIGHT: 162.6 cm WEIGHT: 71.7 kg BP: RVIDd: 2.9 cm (< 3.3) IVSd: 0.8 cm (0.6 - 1.1) LVIDd: 4.3 cm (3.9 - 5.3) LVPWd: 1.0 cm (0.6 - 1.1) IVSs: 1.6 cm LVIDs: 1.9 cm LVPWs: 1.7 cm Ao Diam: 2.6 cm (2.0 - 3.7) AV Cusp: 1.9 cm (1.5 - 2.6) LA Diam: 3.0 cm (2.7 - 3.8) MV EXCURSION: 13.189 mm (> 18.000) MV EF SLOPE: 77 mm/s (70 - 150) EPSS: 0.4 cm MV E Tutu: 0.93 m/s MV DecT: 271 ms MV A Tutu: 0.90 m/s MV E/A Ratio: 1.04 RAP: 5.00 mmHg RVSP: 13.38 mmHg FINDINGS -------- Sinus rhythm. This was a technically good study. The left ventricular size is normal. Left ventricular wall thickness is normal. Overall left vent ricular systolic function is normal with, an EF between 55 - 60 %. The right ventricle is normal in size. The left atrial size is normal. Normal LA size by volume 22+/-6 ml/m2. The right atrial size is normal. The aortic valve is trileaflet and appears structurally normal. The mitral valve is normal. Mild mitral regurgitation is present. The tricuspid valve appears structurally normal. Trace tricuspid regurgitation present. Right china tricular systolic pressure is normal at < 35 mmHg. There is no pulmonic regurgitation present. The aortic root size is normal. Normal inferior vena cava with normal inspiratory collapse consistent with estimated right atrial pre ssure of 5 mmHg. There is no pericardial effusion. CONCLUSIONS -------- 1. Sinus rhythm. 2. This was a technically good study. 3. The left ventricular size is normal. 4. Left ventricular wall thickness is normal. 5. Overall left ventricular systolic function is normal with, an EF between 55 - 60 %. 6. The right ventricle is normal in size. 7. The left atrial size is normal. 8. Normal LA size by volume 22+/-6 ml/m2. 9. The right atrial size is normal. 10. The aortic valve is trileaflet and appears structurally normal. 11. The mitral valve is normal. 12. Mild mitral regurgitation is present. 13. The tricuspid valve appears structurally normal. 14. Trace tricuspid regurgitation present. 15. Right ventricular systolic pressure is normal at < 35 mmHg. 16. There is no pulmonic regurgitation present. 17. The aortic root size is normal. 18. Normal inferior vena cava with normal inspiratory collapse consistent with estimated right atrial pressure of 5 mmHg. 19. There is no pericardial effusion. PRODUCT DEVELOPMENT DIRECTOR: Freda Miranda RDCS
[2020-05-22] MEDS ORDERED: CALCIUM CARBONATE LIQUID 500 MG/5 ML CUP PO SCH (13:27)
[2020-05-22] MEDS ORDERED: ENOXAPARIN 40 MG/0.4 ML SYRINGE SQ SCH (13:30)
[2020-05-22] MEDS ORDERED: PANTOPRAZOLE 40 MG/10 ML VIAL IVP SCH (13:30)
[2020-05-22] MEDS ORDERED: LACTATED RINGERS 1,000 ML IV SCH (13:30)
--- NOTE | 2020-05-22 13:39 | P.CRDCN ---
History of Present Illness History of present illness: HISTORY OF PRESENTING ILLNESS This is a pleasant 50-year-old female past medical history significant for coronary artery disease status post spontaneous dissection of the RCA in that was medically managed at [facility], history of seizures, alcohol abuse, chronic nicotine dependence, dyslipidemia and hypertension. She follows in the office with Dr. Hancock. We have been asked to see in consultation for chest pain. She states for the previous 3 days she has had persistent nausea and vomiting. She states she does continue to have an appetite any desire to eat or drink however every time she takes anything even water she immediately vomits. She is also describing a discomfort in her chest described as a burning stabbing sensation in the midsternal region. It is not associated with activity or exertion but seems to occur after she has vomited. She denies associated shortness of breath, dizziness or palpitations. She is seen and examined resting comfortably lying flat in bed in no acute distress. She has had no vomiting or chest pain since arrival to the emergency department. DIAGNOSTICS EKG reveals sinus mechanism, mild ST depression and T-wave inversion noted inferiorly. Laboratory reviewed, CBC unremarkable, sodium 136, potassium 3.0, creatinine 0.77, magnesium 2.3, ALT 55, AST 45, cardiac enzymes negative 3. Current cardiac medications include that he had 10 mg daily, aspirin 81 mg daily, hydrochlorothiazide 25 mg daily and Lopressor 25 mg twice a day. REVIEW OF SYSTEMS At the time of my exam: CONSTITUTIONAL: Denies fever or chills. CARDIOVASCULAR: Denies chest pain, shortness of breath, orthopnea, PND or palpitations. RESPIRATORY: Denies cough. GASTROINTESTINAL: Denies abdominal pain, diarrhea, constipation, nausea or vomiting. MUSCULOSKELETAL: Denies myalgias. NEUROLOGIC: Denies numbness, tingling or weakness. ENDOCRINE: Denies fatigue, weight change, polydipsia or polyurina. GENITOURINARY: Denies burning, hematuria or urgency with micturation. HEMATOLOGIC: Denies history of anemia or bleeding. PHYSICAL EXAMINATION Blood pressure 124/81 heart rate 92 afebrile and maintaining oxygen saturation on room air. CONSTITUTIONAL: No apparent distress. HEENT: Head is normocephalic. Pupils are equal, round. Sclerae anicteric. Mucous membranes of the mouth are moist. No JVD. No carotid bruit. CHEST EXAMINATION: Lungs are clear to auscultation. No chest wall tenderness is noted on palpation or with deep breathing. HEART EXAMINATION: Regular rate and rhythm. S1, S2 heard. No murmurs, gallops or rub. ABDOMEN: Soft, nontender. Positive bowel sounds. EXTREMITIES: 2+ peripheral pulses, no lower extremity edema and no calf tenderness. NEUROLOGIC EXAMINATION: Patient is awake, alert and oriented x3. ASSESSMENT Chest pain and vomiting for 3 days. An acute event has been ruled out. History of RCA dissection 2018 Hypertension Chronic nicotine dependence Regular alcohol intake PLAN An acute event has been ruled out. Obtain 2D echocardiogram and doppler study to assess cardiac structure and function. Continue to monitor, if she has further chest pain cardiac catheterization will be considered. Thank you kindly for this consultation. Nurse Practitioner note has been reviewed, I agree with a documented findings and plan of care. Patient was seen and examined. Past Medical History Past Medical History: Coronary Artery Disease (CAD), Chest Pain / Angina, Myocardial Infarction ([place]) Additional Past Medical History / Comment(s): Right coronary artery dissection, mitochondrial myopathy, seizure disorder, Malignant Hyperthermia Last Myocardial Infarction Date:: 2017 History of Any Multi-Drug Resistant Organisms: None Reported Past Surgical History: Cholecystectomy, Heart Catheterization, Tubal Ligation Additional Past Surgical History / Comment(s): carpal tunnel Past Anesthesia/Blood Transfusion Reactions: Malignant Hyperthermia Additional Past Anesthesia/Blood Transfusion Reaction / Comment(s): MALIGNANT HYPERTHERMIA Smoking Status: Light tobacco smoker - Past Family History Father Additional Family Medical History / Comment(s): Myotonia congenita Mother Family Medical History: No Reported History Additional Family Medical History / Comment(s): Grandmother had CVA Medications and Allergies Home Medications Medication Instructions Recorded Confirmed Type ALPRAZolam [Xanax] 0.5 mg PO TID PRN 11/13/19 05/22/20 History Budesonide-Formot 160-4.5 Mcg 2 puff INHALATION RT-BID PRN 11/13/19 05/22/20 History [Symbicort 160-4.5 Mcg Inhaler] DULoxetine HCL [Cymbalta] 60 mg PO DAILY 11/13/19 05/22/20 History Ezetimibe [Zetia] 10 mg PO DAILY 11/13/19 05/22/20 History Pregabalin [Lyrica] 150 mg PO BID 11/13/19 05/22/20 History levETIRAcetam 1,000 mg PO Q12HR 11/13/19 05/22/20 History levOCARNitine [Levocarnitine] 330 mg PO TID 11/13/19 05/22/20 History Albuterol Sulfate [Albuterol 2 puff INHALATION RT-Q6H PRN 05/22/20 05/22/20 History Sulfate Hfa] Aspirin EC [Ecotrin Low Dose] 81 mg PO DAILY 05/22/20 05/22/20 History Hydrochlorothiazide [Hydrodiuril] 25 mg PO DAILY 05/22/20 05/22/20 History Metoprolol Tartrate [Lopressor] 25 mg PO BID 05/22/20 05/22/20 History Nitroglycerin Sl Tabs [Nitrostat] 0.4 mg SUBLINGUAL Q5M PRN 05/22/20 05/22/20 History Ondansetron Odt [Zofran Odt] 8 mg PO Q8HR PRN 05/22/20 05/22/20 History Pregabalin [Lyrica] 150 mg PO DAILY PRN 05/22/20 05/22/20 History Ubidecarenone [Co Q-10] 200 mg PO TID 05/22/20 05/22/20 History Allergies Allergy/AdvReac Type Severity Reaction Status Date / Time Penicillins Allergy Severe Swelling Verified 05/22/20 08:56 metoclopramide [From Reglan] Allergy Mild Unknown Verified 05/22/20 08:56 buspirone Allergy Unknown Verified 05/22/20 08:56 codeine Allergy Unknown Verified 05/22/20 08:56 varenicline [From Chantix] Allergy Unknown Verified 05/22/20 08:56 Physical Exam Vitals: Vital Signs Temp Pulse Resp BP Pulse Ox 05/22/20 08:14 85 18 120/78 99 05/22/20 07:36 98.1 F 93 18 129/83 98 05/22/20 06:48 18 112/54 98 05/22/20 04:17 84 18 114/74 94 L 05/22/20 02:34 81 18 110/57 99 05/21/20 23:46 97.8 F 94 18 127/88 97 Intake and Output 05/21/20 05/22/20 05/22/20 22:59 06:59 14:59 Other: Weight 72.575 kg 72.575 kg Results 05/21/20 23:56 05/21/20 23:56 Cardiac Enzymes 05/21/20 05/21/20 05/22/20 Range/Units 23:56 23:56 01:12 AST 55 H (14-36) U/L Troponin I <0.012 <0.012 (0.000-0.034) ng/mL 05/22/20 Range/Units 04:14 AST (14-36) U/L Troponin I <0.012 (0.000-0.034) ng/mL Coagulation 05/21/20 Range/Units 23:56 PT 11.1 (9.0-12.0) sec APTT 125.7 H* (22.0-30.0) sec CBC 05/21/20 Range/Units 23:56 WBC 9.8 (3.8-10.6) k/uL RBC 4.49 (3.80-5.40) m/uL Hgb 14.6 (11.4-16.0) gm/dL Hct 43.7 (34.0-46.0) % Plt Count 243 (150-450) k/uL Comprehensive Metabolic Panel 05/21/20 Range/Units 23:56 Sodium 136 L (137-145) mmol/L Potassium 3.0 L (3.5-5.1) mmol/L Chloride 103 (98-107) mmol/L Carbon Dioxide 22 (22-30) mmol/L BUN 17 (7-17) mg/dL Creatinine 0.77 (0.52-1.04) mg/dL Glucose 121 H (74-99) mg/dL Calcium 9.1 (8.4-10.2) mg/dL AST 55 H (14-36) U/L ALT 45 H (4-34) U/L Alkaline Phosphatase 87 (38-126) U/L Total Protein 6.7 (6.3-8.2) g/dL Albumin 3.8 (3.5-5.0) g/dL Current Medications Generic Name Dose Route Start Last Admin Trade Name Freq PRN Reason Stop Dose Admin Albuterol Sulfate 2 puff 05/22/20 09:39 Ventolin Hfa Inhaler INHALATION RT-Q6H PRN Shortness Of Breath Alprazolam 0.5 mg 05/22/20 09:39 Xanax PO TID PRN Anxiety Aspirin 81 mg 05/23/20 09:00 Aspirin PO DAILY [facility] Budesonide/Formoterol Fumarate 2 puff 05/22/20 09:39 Symbicort 160-4.5 Mcg Inhaler INHALATION RT-BID PRN Shortness Of Breath Duloxetine HCl 60 mg 05/22/20 09:45 Cymbalta PO DAILY [facility] Ezetimibe 10 mg 05/22/20 09:45 Zetia PO DAILY [facility] Sodium Chloride 1,000 mls @ 100 mls/hr 05/22/20 01:00 05/22/20 01:03 Saline 0.9% IV 100 mls/hr .Q10H [facility] Administration Levetiracetam 1,000 mg 05/22/20 09:45 Keppra PO Q12HR [facility] Metoprolol Tartrate 25 mg 05/22/20 09:45 05/22/20 10:29 Lopressor PO Not Given BID [facility] Nitroglycerin 0.4 mg 05/22/20 09:39 Nitrostat SUBLINGUAL Q5M PRN Chest Pain Ondansetron HCl 8 mg 05/22/20 09:39 Zofran Odt PO Q8HR PRN Nausea Pregabalin 150 mg 05/22/20 09:39 Lyrica PO DAILY PRN Pain Pregabalin 150 mg 05/22/20 09:45 Lyrica PO BID [facility] Intake and Output 05/21/20 05/22/20 05/22/20 22:59 06:59 14:59 Other: Weight 72.575 kg 72.575 kg Patient Weight 05/23/20 06:59 Weight 72.575 kg 05/21/20 23:56 05/21/20 23:56
[2020-05-22 14:46] VITALS: BP 116/100; PULSE 104; TEMP 98.3
--- NOTE | 2020-05-22 19:48 | P.HPIM ---
History of Present Illness H&P Date: 05/22/20 Chief Complaint: Nausea vomiting History of presenting complaint: This is a pleasant 50-year-old patient of Dr. Andres Rm. Chronic stable medical conditions include mitochondrial myopathy, seizure disorder, right coronary artery dissection with a questionable [place]. Patient was here in January of this year with a diagnosis of acute alcohol intoxication and alcohol use d isorder. Patient's is then has not really been drinking any alcohol. Though continues to smoke occasionally. Patient has rather severe reflux symptoms. For last 3 days. Having nausea vomiting. Denies any fever and chills. No abdominal pain. Does have bowel movements. Patient reflux symptoms have been bothering her. Patient was transferred here from [facility] and she is also had some chest burning. With the vomiting. She does CT angiogram done of the other hospital that showed some emphysema and questionable pulmonary fibrosis. 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 Social history: Smoking more in the past now for last 3 months a few cigarettes a day. Cut back on alcohol significantly since 3 months. Lives with her mother. On disability. Physical examination: VITAL SIGNS: 97.8, 94, 18, 127/88, 97% on room air GENERAL: BMI 27.5, laying in bed, slightly anxious, telangiectasia EYES: Pupils equal. Conjunctiva normal. HEENT: External appearance of nose and ears normal, oral cavity grossly normal. Flushed NECK: JVD not raised; masses not palpable. HEART: First and second heart sounds are normal; no edema. LUNGS: Respiratory rate normal; clear to auscultation. ABDOMEN: Soft, nontender, liver spleen not palpable, no masses palpable. PSYCH: [Alert and oriented x3; mood and affect anxious NEUROLOGICAL: Cranial nerves grossly intact; no facial asymmetry, power and sensation grossly intact. LYMPHATICS: No lymph nodes palpable in the axilla and neck INVESTIGATIONS, reviewed in the clinical context: White count 9.8 hemoglobin 14.6 platelets 243 potassium 3 bun 17 creatinine 0.77 Troponin I less than 0.0123 Assessment: -This is a patient presents with nausea vomiting for 3 days with worsening reflux symptoms in a patient was drinking significant alcohol till a 3 months ago. Most likely this is acute and chronic gastritis esophagitis.. -Anterior chest wall likely secondary to vomiting, musculoskeletal -Mitochondrial myopathy -Chronic epilepsy disorder -COPD in a X smoker, who still smokes occasionally -Anxiety disorder not otherwise specified Plan: Patient was started on PPI, Tums. Given her severe symptoms related to EGD. Highly doubt this to be cardiac presentation but cardiology was consulted. Patient was explained maneuvers to cut back on her reflux symptoms. Past Medical History Past Medical History: Coronary Artery Disease (CAD), Chest Pain / Angina, Myocardial Infarction (OH) Additional Past Medical History / Comment(s): Right coronary artery dissection, mitochondrial myopathy, seizure disorder, Malignant Hyperthermia Last Myocardial Infarction Date:: 2017 History of Any Multi-Drug Resistant Organisms: None Reported Past Surgical History: Cholecystectomy, Heart Catheterization, Tubal Ligation Additional Past Surgical History / Comment(s): carpal tunnel Past Anesthesia/Blood Transfusion Reactions: Malignant Hyperthermia Additional Past Anesthesia/Blood Transfusion Reaction / Comment(s): MALIGNANT HYPERTHERMIA Past Psychological History: Anxiety, Depression Smoking Status: Current every day smoker Past Alcohol Use History: Abuse, Daily Past Drug Use History: None Reported - Past Family History Father Additional Family Medical History / Comment(s): Myotonia congenita Mother Family Medical History: No Reported History Additional Family Medical History / Comment(s): Grandmother had CVA Medications and Allergies Home Medications Medication Instructions Recorded Confirmed Type ALPRAZolam [Xanax] 0.5 mg PO TID PRN 11/13/19 05/22/20 History Budesonide-Formot 160-4.5 Mcg 2 puff INHALATION RT-BID PRN 11/13/19 05/22/20 History [Symbicort 160-4.5 Mcg Inhaler] DULoxetine HCL [Cymbalta] 60 mg PO DAILY 11/13/19 05/22/20 History Ezetimibe [Zetia] 10 mg PO DAILY 11/13/19 05/22/20 History Pregabalin [Lyrica] 150 mg PO BID 11/13/19 05/22/20 History levETIRAcetam 1,000 mg PO Q12HR 11/13/19 05/22/20 History levOCARNitine [Levocarnitine] 330 mg PO TID 11/13/19 05/22/20 History Albuterol Sulfate [Albuterol 2 puff INHALATION RT-Q6H PRN 05/22/20 05/22/20 History Sulfate Hfa] Aspirin EC [Ecotrin Low Dose] 81 mg PO DAILY 05/22/20 05/22/20 History Hydrochlorothiazide [Hydrodiuril] 25 mg PO DAILY 05/22/20 05/22/20 History Metoprolol Tartrate [Lopressor] 25 mg PO BID 05/22/20 05/22/20 History Nitroglycerin Sl Tabs [Nitrostat] 0.4 mg SUBLINGUAL Q5M PRN 05/22/20 05/22/20 History Ondansetron Odt [Zofran Odt] 8 mg PO Q8HR PRN 05/22/20 05/22/20 History Pregabalin [Lyrica] 150 mg PO DAILY PRN 05/22/20 05/22/20 History Ubidecarenone [Co Q-10] 200 mg PO TID 05/22/20 05/22/20 History Allergies Allergy/AdvReac Type Severity Reaction Status Date / Time Penicillins Allergy Severe Swelling Verified 05/22/20 08:56 metoclopramide [From Reglan] Allergy Mild Unknown Verified 05/22/20 08:56 buspirone Allergy Unknown Verified 05/22/20 08:56 codeine Allergy Unknown Verified 05/22/20 08:56 varenicline [From Chantix] Allergy Unknown Verified 05/22/20 08:56 Physical Exam Vitals: Vital Signs Temp Pulse Resp BP Pulse Ox 05/22/20 08:14 85 18 120/78 99 05/22/20 07:36 98.1 F 93 18 129/83 98 05/22/20 06:48 18 112/54 98 05/22/20 04:17 84 18 114/74 94 L 05/22/20 02:34 81 18 110/57 99 05/21/20 23:46 97.8 F 94 18 127/88 97 Intake and Output 05/21/20 05/22/20 05/22/20 22:59 06:59 14:59 Other: Weight 72.575 kg Results CBC & Chem 7: 05/21/20 23:56 05/21/20 23:56 Labs: Abnormal Lab Results - Last 24 Hours (Table) 05/21/20 05/21/20 Range/Units 23:56 23:56 APTT 125.7 H* (22.0-30.0) sec Sodium 136 L (137-145) mmol/L Potassium 3.0 L (3.5-5.1) mmol/L Glucose 121 H (74-99) mg/dL AST 55 H (14-36) U/L ALT 45 H (4-34) U/L
--- NOTE | 2020-05-22 19:51 | P.DS ---
Providers Date of admission: 05/22/20 01:00 Expected date of discharge: 05/22/20 (Left AGAINST MEDICAL ADVICE) Attending physician: Migue Steve Consults: 05/22/20 00:58 Consult Physician Routine Consulting Provider: Real Slaughter Consult Reason/Comments: chest pain Do you want consulting provider notified?: Yes Primary care physician: Kvng [facility] Course: Chief Complaint: Nausea vomiting History of presenting complaint: This is a pleasant 50-year-old patient of Dr. Andres Rm. Chronic stable medical conditions include mitochondrial myopathy, seizure disorder, right coronary artery dissection with a questionable [place]. Patient was here in January of this year with a diagnosis of acute alcohol intoxication and alcohol use disor poppy. Patient's is then has not really been drinking any alcohol. Though continues to smoke occasionally. Patient has rather severe reflux symptoms. For last 3 days. Having nausea vomiting. Denies any fever and chills. No abdominal pain. Does have bowel movements. Patient reflux symptoms have been bothering her. Patient was transferred here from [facility] and she is also had some chest burning. With the vomiting. She does CT angiogram done of the other hospital that showed some emphysema and questionable pulmonary fibrosis. Cardiology was consulted. Patient started on PPI and Tums. Patient was being scheduled for EGD. Patient was being followed by cardiac surgery. Later in the day patient decided to leave the hospital AMA. Consultation: Cardiology associates Physical examination: VITAL SIGNS: 98.3, 104, 18, 160-100, 96% on room air GENERAL: BMI 27.5, laying in bed, slightly anxious, telangiectasia EYES: Pupils equal. Conjunctiva normal. HEENT: External appearance of nose and ears normal, oral cavity grossly normal. Flushed NECK: JVD not raised; masses not palpable. HEART: First and second heart sounds are normal; no edema. LUNGS: Respiratory rate normal; clear to auscultation. ABDOMEN: Soft, nontender, liver spleen not palpable, no masses palpable. PSYCH: [Alert and oriented x3; mood and affect anxious INVESTIGATIONS, reviewed in the clinical context: White count 9.8 hemoglobin 14.6 platelets 243 potassium 3 bun 17 creatinine 0.77 Troponin I less than 0.0123 Assessment: -This is a patient presents with nausea vomiting for 3 days with worsening reflux symptoms in a patient was drinking significant alcohol till a 3 months ago. Most likely this is acute and chronic gastritis esophagitis.. -Anterior chest wall likely secondary to vomiting, musculoskeletal -Mitochondrial myopathy -Chronic epilepsy disorder -COPD in a X smoker, who still smokes occasionally -Anxiety disorder not otherwise specified Disposition: Patient left AMA Patient Condition at Discharge: Undetermined Plan - Discharge Summary Discharge Rx Participant: No New Discharge Prescriptions: No Action Pregabalin [Lyrica] 150 mg PO BID Budesonide-Formot 160-4.5 Mcg [Symbicort 160-4.5 Mcg Inhaler] 2 puff INHALATION RT-BID PRN PRN Reason: Shortness Of Breath levOCARNitine [Levocarnitine] 330 mg PO TID levETIRAcetam 1,000 mg PO Q12HR Ezetimibe [Zetia] 10 mg PO DAILY DULoxetine HCL [Cymbalta] 60 mg PO DAILY ALPRAZolam [Xanax] 0.5 mg PO TID PRN PRN Reason: Anxiety Nitroglycerin Sl Tabs [Nitrostat] 0.4 mg SUBLINGUAL Q5M PRN PRN Reason: Chest Pain Hydrochlorothiazide [Hydrodiuril] 25 mg PO DAILY Aspirin EC [Ecotrin Low Dose] 81 mg PO DAILY Ondansetron Odt [Zofran Odt] 8 mg PO Q8HR PRN PRN Reason: Nausea Albuterol Sulfate [Albuterol Sulfate Hfa] 2 puff INHALATION RT-Q6H PRN PRN Reason: Shortness Of Breath Pregabalin [Lyrica] 150 mg PO DAILY PRN PRN Reason: Pain Ubidecarenone [Co Q-10] 200 mg PO TID Metoprolol Tartrate [Lopressor] 25 mg PO BID Discharge Medication List ALPRAZolam [Xanax] 0.5 mg PO TID PRN 11/13/19 [History] Budesonide-Formot 160-4.5 Mcg [Symbicort 160-4.5 Mcg Inhaler] 2 puff INHALATION RT-BID PRN 11/13/19 [History] DULoxetine HCL [Cymbalta] 60 mg PO DAILY 11/13/19 [History] Ezetimibe [Zetia] 10 mg PO DAILY 11/13/19 [History] Pregabalin [Lyrica] 150 mg PO BID 11/13/19 [History] levETIRAcetam 1,000 mg PO Q12HR 11/13/19 [History] levOCARNitine [Levocarnitine] 330 mg PO TID 11/13/19 [History] Albuterol Sulfate [Albuterol Sulfate Hfa] 2 puff INHALATION RT-Q6H PRN 05/22/20 [History] Aspirin EC [Ecotrin Low Dose] 81 mg PO DAILY 05/22/20 [History] Hydrochlorothiazide [Hydrodiuril] 25 mg PO DAILY 05/22/20 [History] Metoprolol Tartrate [Lopressor] 25 mg PO BID 05/22/20 [History] Nitroglycerin Sl Tabs [Nitrostat] 0.4 mg SUBLINGUAL Q5M PRN 05/22/20 [History] Ondansetron Odt [Zofran Odt] 8 mg PO Q8HR PRN 05/22/20 [History] Pregabalin [Lyrica] 150 mg PO DAILY PRN 05/22/20 [History] Ubidecarenone [Co Q-10] 200 mg PO TID 05/22/20 [History] Follow up Appointment(s)/Referral(s): Kvng Rm MD [Primary Care Provider] - 1-2 days Patient Instructions/Handouts: Chest Pain (ED) Discharge Disposition: Left Against Medical Advice
[2020-05-23] MEDS ORDERED: ASPIRIN 81 MG PO SCH (09:00)
== END 2020-05-22 14:44 | disposition left against medical advice (07) ==
LOC: EC 23:46 → 1SOBS 05-22 01:00
PROVIDERS: ADMIT Hospitalist; ATTEND Hospitalist
DX: R07.89 Other chest pain (principal); R11.2 Nausea with vomiting, unspecified; R19.8 Other specified symptoms and signs involving the digestive system and abdomen; G71.3 Mitochondrial myopathy, not elsewhere classified; G40.909 Epilepsy, unspecified, not intractable, without status epilepticus; J43.9 Emphysema, unspecified; F41.9 Anxiety disorder, unspecified; Z53.29 Procedure and treatment not carried out because of patient's decision for other reasons; I25.10 Atherosclerotic heart disease of native coronary artery without angina pectoris; I25.2 Old myocardial infarction; F32.9 Major depressive disorder, single episode, unspecified; E78.5 Hyperlipidemia, unspecified; I10 Essential (primary) hypertension; I34.0 Nonrheumatic mitral (valve) insufficiency; F17.200 Nicotine dependence, unspecified, uncomplicated; Z03.818 Encounter for observation for suspected exposure to other biological agents ruled out; Z98.890 Other specified postprocedural states; Z79.899 Other long term (current) drug therapy; Z79.51 Long term (current) use of inhaled steroids; Z79.82 Long term (current) use of aspirin; Z88.0 Allergy status to penicillin; Z88.8 Allergy status to other drugs, medicaments and biological substances; Z88.5 Allergy status to narcotic agent; Z91.89 Other specified personal risk factors, not elsewhere classified; Z90.49 Acquired absence of other specified parts of digestive tract; Z98.51 Tubal ligation status; Z86.69 Personal history of other diseases of the nervous system and sense organs; Z82.0 Family history of epilepsy and other diseases of the nervous system; Z82.3 Family history of stroke
CPT/HCPCS: 36415; 93005; 93306; 80053; 83735; 84484 ×2; 85025; 85610; 85730; G0378; U0003; J2405

== ENCOUNTER 2022-03-13 08:47 | Inpatient (IN) | payer MEDICARE, OTHER ==
[2022-03-13] MEDS ORDERED: IPRATROPIUM-ALBUTEROL 3 ML NEB INHALATION STA (09:06)
[2022-03-13] MEDS ORDERED: SODIUM CHLORIDE 0.9% 1,000 ML IV STA ×2 (09:06)
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
[2022-03-13 09:36] LABS: Basophils # (A) 0.1 k/uL (0-0.2); Basophils % (A) 0 %; Eosinophils % (A) 0 %; HCT 46.8 % (34.0-46.0); HGB 15.7 gm/dL (11.4-16.0); Lymphocytes # (A) 1.9 k/uL (1.0-4.8); Lymphocytes % (A) 14 %; MCHC 33.6 g/dL (31.0-37.0); MCV 104.4 fL (80.0-100.0); Macrocytosis Moderate; Mean Platelet Volume 7.7; Monocytes # (A) 0.7 k/uL (0-1.0); Monocytes % (A) 5 %; Neutrophils # (A) 10.5 k/uL (1.3-7.7); Neutrophils % (A) 78 %; Platelet Count 312 k/uL (150-450); RBC 4.48 m/uL (3.80-5.40); RDW 14.5 % (11.5-15.5); WBC 13.5 k/uL (3.8-10.6)
[2022-03-13 09:43] LABS: ALT 136 U/L (4-34); AST 139 U/L (14-36); African American GFR (CKD) 55 (>60 ml/min/1.73 sqM); Albumin 5.2 g/dL (3.5-5.0); Alcohol <10 mg/dL; Alkaline Phosphatase 142 U/L (38-126); Anion Gap 20 mmol/L; Blood Urea Nitrogen 23 mg/dL (7-17); Calcium 10.4 mg/dL (8.4-10.2); Carbon Dioxide 19 mmol/L (22-30); Chloride 100 mmol/L (98-107); Glucose 139 mg/dL (74-99); Magnesium 1.7 mg/dL (1.6-2.3); Non-African American GFR(CKD) 48 (>60 ml/min/1.73 sqM); Potassium 4.1 mmol/L (3.5-5.1); Sodium 139 mmol/L (137-145); Total Bilirubin 1.3 mg/dL (0.2-1.3); Total Protein 8.8 g/dL (6.3-8.2)
[2022-03-13 09:46] LABS: INR 0.9 (<1.2); Partial Thromboplastin Time 24.3 sec (22.0-30.0); Prothrombin Time 10.2 sec (9.0-12.0)
[2022-03-13 10:34] LABS: Amphetamine Screen,Urine Not Detected (NotDetected); Barbiturate Screen,Urine Not Detected (NotDetected); Benzodiazepines Screen,Urine Not Detected (NotDetected); Cocaine Screen,Urine Not Detected (NotDetected); Methadone Screen, Urine Not Detected (NotDetected); Opiate Screen,Urine Not Detected (NotDetected); Oxycodone Screen, Urine Not Detected (NotDetected); Phencyclidine Screen,Urine Not Detected (NotDetected); Tricyclic Antidepressant,Urine Not Detected (NotDetected); Urn Cannabinoid Scrn Not Detected (NotDetected)
--- NOTE | 2022-03-13 10:37 | XR ---
EXAMINATION TYPE: XR chest 2V DATE OF EXAM: 03/13/2022 COMPARISON: Chest x-ray 07/12/2020 HISTORY: Difficulty breathing, dyspnea TECHNIQUE: Frontal and lateral views of the chest are obtained. FINDINGS: There is no focal air space opacity, pleural effusion, or pneumothorax seen. The cardiac silhouette size is within normal limits. There are overlying leads. The osseous structures are inta ct. IMPRESSION: No acute cardiopulmonary process.
--- NOTE | 2022-03-13 10:39 | XR ---
KUB HISTORY: Foreign body Frontal KUB and 2 images, no comparisons Surgical clips are present in the right upper quadrant. There is a generator over the right gluteal r egion, lead is present coursing to the region of the right sacrum. Probable vascular calcifications a re present within the pelvis. No additional radiopaque foreign body. No evident bowel obstruction or pneumoperitoneum. Left hemiabdomen not entirely included on exam. IMPRESSION: Postoperative findings as described.
[2022-03-13] MEDS ORDERED: LORazepam 2 MG/ML INJ IV STA ×3 (10:46→18:39)
--- NOTE | 2022-03-13 11:04 | CT ---
EXAMINATION TYPE: CT brain wo con DATE OF EXAM: 03/13/2022 COMPARISON: None HISTORY: Altered mental status CT DLP: 1155.4 mGycm Automated exposure control for dose reduction was used. Helical imaging through the brain. FINDINGS: There is no hemorrhage or hydrocephalus. Calvarium is intact. Paranasal sinuses and mastoid air cells as visualized are remarkable for some mild inflammatory change in the right mastoids only. Basal merritt glia calcification is present IMPRESSION: NO ACUTE BRAIN ABNORMALITY, CONSIDER BRAIN MRI INDICATED
--- NOTE | 2022-03-13 11:10 | CT ---
EXAMINATION TYPE: CT angio chest DATE OF EXAM: 03/13/2022 COMPARISON: Chest x-ray same date HISTORY: SHAYLEE CT DLP: 423 mGycm Automated exposure control for dose reduction was used. CONTRAST: CTA scan of the thorax is performed with IV Contrast, patient injected with 71 mL of Isovue 370, pulm onary embolism protocol. MIP images are created and reviewed. 3D reconstructed images are created o n an independent workstation and reviewed. FINDINGS: LUNGS: The lungs are remarkable for emphysematous change, motion limits detail. There is no pleural effusion or pneumothorax seen. The tracheobronchial tree is patent. AORTA: No additional significant abnormality is seen. MEDIASTINUM: There is satisfactory enhancement of the pulmonary artery and its branches, there is no CT evidence for pulmonary embolism, segmental branches somewhat limited for evaluation due to motion. There are no greater than 1 cm hilar or mediastinal lymph nodes. No pericardial effusion is seen. OTHER: Liver shows low attenuation possibly due to underlying hepatic steatosis. IMPRESSION: NO EVIDENT PULMONARY EMBOLUS WITHIN THE LIMITATIONS OF THE EXAM. THERE IS EXTENSIVE EMPHYSEMA.
[2022-03-13] MEDS ORDERED: THIAMINE 100 MG/ML 2 ML VIAL IM STA ×2 (14:18→15:36)
[2022-03-13] MEDS ORDERED: ONDANSETRON 4 MG/2 ML VIAL IVP PRN (15:31)
[2022-03-13] MEDS ORDERED: NALOXONE 0.4 MG/ML 1 ML VIAL IV PRN (15:31)
[2022-03-13] MEDS ORDERED: NON FORMULARY DRUG (Ubrogepant [Ubrelvy] 50 MG Tablet) PO PRN (15:34)
[2022-03-13] MEDS ORDERED: LORazepam 2 MG/ML INJ IV PRN (15:36)
[2022-03-13] MEDS: LORazepam 2 MG/ML INJ IV PRN ×6 (17:10→23:46)
[2022-03-13] MEDS ORDERED: IPRATROPIUM-ALBUTEROL 3 ML NEB INHALATION SCH (18:00)
[2022-03-13] MEDS ORDERED: IPRATROPIUM-ALBUTEROL 3 ML NEB INHALATION PRN (19:08)
[2022-03-13] MEDS: SYMBICORT 160-4.5 MCG INHALER INHALATION SCH (20:26)
[2022-03-13] MEDS: IPRATROPIUM-ALBUTEROL 3 ML NEB INHALATION SCH (20:26)
[2022-03-13] MEDS ORDERED: chlordiazePOXIDE 25 MG CAP PO STA ×3 (20:54→23:53)
[2022-03-13] MEDS: METOPROLOL TARTRATE 25 MG TAB PO SCH (21:15)
[2022-03-13] MEDS: levETIRAcetam 500 MG TAB PO SCH (21:15)
[2022-03-13] MEDS: PREGABALIN 75 MG CAP PO SCH (21:15)
[2022-03-13] MEDS: DULoxetine HCL 60 MG CAPSULE.DR PO SCH (21:15)
[2022-03-14] MEDS: LORazepam 2 MG/ML INJ IV PRN (01:09)
[2022-03-14] MEDS: THIAMINE 100 MG TAB PO SCH ×2 (06:04→17:54)
[2022-03-14] MEDS: SYMBICORT 160-4.5 MCG INHALER INHALATION SCH ×2 (08:16→20:14)
[2022-03-14] MEDS: IPRATROPIUM-ALBUTEROL 3 ML NEB INHALATION SCH ×3 (08:16→20:14)
[2022-03-14] MEDS ORDERED: hydroCHLOROthiazide 25 MG TAB PO SCH (09:00)
[2022-03-14] MEDS: PANTOPRAZOLE 40 MG/10 ML VIAL IV SCH (09:51)
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
[2022-03-14] MEDS: METOPROLOL TARTRATE 25 MG TAB PO SCH ×2 (14:54→19:40)
[2022-03-14] MEDS: levETIRAcetam 500 MG TAB PO SCH ×2 (14:54→19:39)
[2022-03-14] MEDS: DULoxetine HCL 60 MG CAPSULE.DR PO SCH (14:54)
[2022-03-14] MEDS: PREGABALIN 75 MG CAP PO SCH ×2 (14:54→19:40)
[2022-03-14 15:20] LABS: African American GFR (CKD) >90 (>60 ml/min/1.73 sqM); Anion Gap 9 mmol/L; Blood Urea Nitrogen 21 mg/dL (7-17); Calcium 8.7 mg/dL (8.4-10.2); Carbon Dioxide 23 mmol/L (22-30); Chloride 106 mmol/L (98-107); Glucose 86 mg/dL (74-99); Non-African American GFR(CKD) >90 (>60 ml/min/1.73 sqM); Potassium 3.7 mmol/L (3.5-5.1); Sodium 138 mmol/L (137-145)
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
[2022-03-14] MEDS: FOLIC ACID 1 MG TAB PO SCH (17:55)
[2022-03-14] MEDS: EZETIMIBE 10 MG TAB PO SCH (17:55)
[2022-03-14] MEDS: DULoxetine HCL 30 MG CAPSULE.DR PO SCH (19:39)
[2022-03-14] MEDS: HEPARIN SODIUM,PORCINE/PF 5,000 UNIT/0.5 ML SYRINGE SQ SCH (19:39)
[2022-03-14] MEDS ORDERED: QUEtiapine 25 MG TAB PO SCH (21:00)
[2022-03-15 08:24] LABS: Basophils # (A) 0.1 k/uL (0-0.2); Basophils % (A) 1 %; Eosinophils # (A) 0.1 k/uL (0-0.7); Eosinophils % (A) 2 %; HCT 43.1 % (34.0-46.0); HGB 13.9 gm/dL (11.4-16.0); Lymphocytes # (A) 1.4 k/uL (1.0-4.8); Lymphocytes % (A) 24 %; MCH 34.4 pg (25.0-35.0); MCHC 32.3 g/dL (31.0-37.0); MCV 106.4 fL (80.0-100.0); Macrocytosis Moderate; Mean Platelet Volume 8.2; Monocytes # (A) 0.5 k/uL (0-1.0); Monocytes % (A) 8 %; Neutrophils # (A) 3.6 k/uL (1.3-7.7); Neutrophils % (A) 63 %; Platelet Count 208 k/uL (150-450); RBC 4.05 m/uL (3.80-5.40); RDW 13.4 % (11.5-15.5); WBC 5.7 k/uL (3.8-10.6)
[2022-03-15 08:42] LABS: African American GFR (CKD) >90 (>60 ml/min/1.73 sqM); Anion Gap 13 mmol/L; Blood Urea Nitrogen 20 mg/dL (7-17); Calcium 8.9 mg/dL (8.4-10.2); Carbon Dioxide 21 mmol/L (22-30); Chloride 105 mmol/L (98-107); Glucose 67 mg/dL (74-99); Non-African American GFR(CKD) >90 (>60 ml/min/1.73 sqM); Potassium 3.8 mmol/L (3.5-5.1); Sodium 139 mmol/L (137-145)
[2022-03-15] MEDS: HEPARIN SODIUM,PORCINE/PF 5,000 UNIT/0.5 ML SYRINGE SQ SCH ×2 (12:16→20:25)
[2022-03-15] MEDS: THIAMINE 100 MG TAB PO SCH ×2 (12:16→16:30)
[2022-03-15] MEDS: EZETIMIBE 10 MG TAB PO SCH (12:16)
[2022-03-15] MEDS: DULoxetine HCL 30 MG CAPSULE.DR PO SCH ×2 (12:16→20:24)
[2022-03-15] MEDS: IPRATROPIUM-ALBUTEROL 3 ML NEB INHALATION SCH ×3 (12:16→21:45)
[2022-03-15] MEDS: FOLIC ACID 1 MG TAB PO SCH (12:16)
[2022-03-15] MEDS: SYMBICORT 160-4.5 MCG INHALER INHALATION SCH ×2 (12:16→21:44)
[2022-03-15] MEDS: PREGABALIN 75 MG CAP PO SCH ×2 (12:17→20:24)
[2022-03-15] MEDS: METOPROLOL TARTRATE 25 MG TAB PO SCH ×2 (12:17→20:24)
[2022-03-15] MEDS: PANTOPRAZOLE 40 MG/10 ML VIAL IV SCH (12:17)
[2022-03-15] MEDS: levETIRAcetam 500 MG TAB PO SCH ×2 (12:17→20:24)
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
[2022-03-15] MEDS: ACETAMINOPHEN TAB 325 MG TAB PO PRN (20:25)
[2022-03-15] MEDS ORDERED: PRAZOSIN 1 MG CAP PO SCH (21:00)
[2022-03-16] MEDS: ACETAMINOPHEN TAB 325 MG TAB PO PRN (04:54)
[2022-03-16] MEDS: THIAMINE 100 MG TAB PO SCH (06:30)
[2022-03-16] MEDS: IPRATROPIUM-ALBUTEROL 3 ML NEB INHALATION SCH ×2 (07:40→11:10)
[2022-03-16] MEDS: SYMBICORT 160-4.5 MCG INHALER INHALATION SCH (07:40)
[2022-03-16] MEDS: levETIRAcetam 500 MG TAB PO SCH (09:43)
[2022-03-16] MEDS: EZETIMIBE 10 MG TAB PO SCH (09:43)
[2022-03-16] MEDS: PANTOPRAZOLE 40 MG/10 ML VIAL IV SCH (09:43)
[2022-03-16] MEDS: FOLIC ACID 1 MG TAB PO SCH (09:43)
[2022-03-16] MEDS: PREGABALIN 75 MG CAP PO SCH (09:43)
[2022-03-16] MEDS: DULoxetine HCL 30 MG CAPSULE.DR PO SCH (09:43)
[2022-03-16] MEDS: METOPROLOL TARTRATE 25 MG TAB PO SCH (09:43)
[2022-03-16] MEDS: HEPARIN SODIUM,PORCINE/PF 5,000 UNIT/0.5 ML SYRINGE SQ SCH (09:43)
--- NOTE | 2022-03-16 09:52 | PN ---
PROGRESS NOTE This is a 51-year-old white female admitted with acute psychosis, alcohol withdrawal, bipolar disorder and alcoholism. She will possibly need alcohol cessation, medications for addiction and alcoholism to continue to avoid alcohol in the near future. She had untreated depression. Cardiovascular S1-S2. Psych fair mood and affect. Neurologic alert and oriented x3. Fair mood and affect. ASSESSMENT: 1. Acute psychosis. 2. Alcoholism. 3. Alcohol withdrawal. Prognosis guarded. Follow up in next 24 to 48 hours for possible discharge home on alcohol addiction medicine. MMODL / IJN: [id number] /
[2022-03-16 11:36] VITALS: BP 123/82; PULSE 105; RESP 16; TEMP 98.6
--- NOTE | 2022-03-16 13:59 | P.PN ---
Progress Note - Text Progress Note Date: 03/16/22 Interval History: Patient was seen at bedside and was directable and agreeable to speak with script writer in her room. The patient reports that she feels "better." She is currently denying any suicidal or homicidal ideation, intention, and/or plan. She reports no auditory or visual hallucinations. She denies any paranoia or other delusions. She remains future oriented and expresses a desire to attend outpatient rehab for her alcohol use disorder. She was also recommended to see an outpatient therapist and psychiatrist for further treatment of her PTSD. She expresses a desire for discharge. Mental Status Exam: General Appearance: Patient appears to be stated age is alert, directable, and cooperative. Behavior: Patient is calmly lying down in bed without any agitated behavior. Appropriately tearful throughout the interview. Speech: Patient's speech is fluent and nonpressured. Mood/Affect: Mood is "feeling better," affect is congruent and euthymic. Occasionally tearful. Suicidality/Homicidality: Patient denies any suicidal or homicidal ideation, intention, and/or plan. Perceptions: Patient denies any visual hallucinations and denies any auditory hallucinations Though content/process: There is no evidence of any delusional thought content and thought process is linear and goal-directed. Memory and concentration: AOX3, grossly intact for the purposes of this session Judgment and insight: Improving mildly Vital Signs Temp 98.6 F 03/16/22 07:15 Pulse 105 H 03/16/22 07:15 Resp 16 03/16/22 07:15 BP 123/82 03/16/22 07:15 Pulse Ox 97 03/16/22 07:15 Intake & Output 03/15/22 03/16/22 03/16/22 18:59 06:59 18:59 Intake Total 0 130 Balance 0 130 Intake: IV 10 Invasive Line 1 10 Oral 0 120 Other: # Voids 1 Assessment Alcohol withdrawal with perceptual disturbances - resolving Alcohol use disorder, severe Posttraumatic stress disorder Unspecified depressive disorder Unspecified anxiety disorder Plan: -Continue your medical management for alcohol withdrawal. -Agree with plan for outpatient rehab. -At this time patient DOES NOT meet criteria for inpatient psychiatric admission. -Delirium precautions recommended with patient including - avoiding use of narcotics and [employer] sedatives, limit anticholinergic medications when possible, frequent re-orientation, minimize use of restraints, open window shades during the day and close them at night -Would recommend the following medication changes/additions: Continue Cymbalta 30 mg by mouth twice a day for depression Continue prazosin 2 mg by mouth at bedtime for PTSD related nightmares -Patient is cleared psychiatrically for discharge. Psychiatry will sign off at this time.
== END 2022-03-16 15:06 | disposition home or self-care (01) | DRG 897 ==
LOC: EC 08:47 → 3SCARD 15:31
PROVIDERS: ADMIT Family Medicine; ATTEND Family Medicine
DX: F10.232 Alcohol dependence with withdrawal with perceptual disturbance (principal); F23 Brief psychotic disorder; E87.2 Acidosis; N17.9 Acute kidney failure, unspecified; F10.231 Alcohol dependence with withdrawal delirium; E86.0 Dehydration; R74.01 Elevation of levels of liver transaminase levels; R09.02 Hypoxemia; F17.200 Nicotine dependence, unspecified, uncomplicated; F31.9 Bipolar disorder, unspecified; F43.10 Post-traumatic stress disorder, unspecified; G40.909 Epilepsy, unspecified, not intractable, without status epilepticus; I25.10 Atherosclerotic heart disease of native coronary artery without angina pectoris; F41.9 Anxiety disorder, unspecified; Z62.810 Personal history of physical and sexual abuse in childhood; Z20.822 Contact with and (suspected) exposure to COVID-19; Z28.310 Unvaccinated for COVID-19; I25.2 Old myocardial infarction; Z79.51 Long term (current) use of inhaled steroids; Z79.899 Other long term (current) drug therapy; Z88.5 Allergy status to narcotic agent; Z88.0 Allergy status to penicillin; Z88.8 Allergy status to other drugs, medicaments and biological substances; Z98.51 Tubal ligation status; Z98.890 Other specified postprocedural states; Z90.49 Acquired absence of other specified parts of digestive tract; Z71.41 Alcohol abuse counseling and surveillance of alcoholic; Z86.79 Personal history of other diseases of the circulatory system; Z65.3 Problems related to other legal circumstances; Z82.3 Family history of stroke; Z82.69 Family history of other diseases of the musculoskeletal system and connective tissue
CPT/HCPCS: 36415; 70450; 71046; 71275; 74018; 80048; 80053; 80306; 80320; 81025; 82140; 82550; 83605; 83735; 83880; 84443; 84484; 85025; 85379; 85610; 85730; 87040; 87636; 93005; 94640; 96361; 96372; 96374; 96376; 99285

== ENCOUNTER 2022-05-06 08:15 | Emergency (ER) | payer MEDICARE, OTHER ==
[2022-05-06 08:38] VITALS: TEMP 98.6
[2022-05-06] MEDS ORDERED: SODIUM CHLORIDE 0.9% 1,000 ML IV STA (08:50)
[2022-05-06] MEDS ORDERED: LORazepam 2 MG/ML INJ IV STA (08:50)
[2022-05-06] MEDS ORDERED: ONDANSETRON 4 MG/2 ML VIAL IVP STA (08:51)
[2022-05-06 09:22] LABS: Basophils % (A) 0 %; Eosinophils # (A) 0.1 k/uL (0-0.7); Eosinophils % (A) 1 %; HCT 47.2 % (34.0-46.0); HGB 15.8 gm/dL (11.4-16.0); Lymphocytes # (A) 1.4 k/uL (1.0-4.8); Lymphocytes % (A) 16 %; MCH 33.4 pg (25.0-35.0); MCHC 33.4 g/dL (31.0-37.0); Mean Platelet Volume 7.8; Monocytes # (A) 0.4 k/uL (0-1.0); Monocytes % (A) 5 %; Neutrophils # (A) 6.8 k/uL (1.3-7.7); Neutrophils % (A) 77 %; Platelet Count 284 k/uL (150-450); RBC 4.72 m/uL (3.80-5.40); RDW 13.6 % (11.5-15.5); WBC 8.9 k/uL (3.8-10.6)
[2022-05-06 09:33] LABS: Partial Thromboplastin Time 22.7 sec (22.0-30.0); Prothrombin Time 10.6 sec (9.0-12.0)
--- NOTE | 2022-05-06 09:39 | ED ---
General Adult HPI - General Chief complaint: Nausea/Vomiting/Diarrhea Stated complaint: Chest Pain Time Seen by Provider: 05/06/22 08:21 Source: patient, EMS, RN notes reviewed, old records reviewed Mode of arrival: EMS - History of Present Illness Initial comments: 52-year-old female presents for evaluation of nausea vomiting. She had told paramedics she had some chest pain although she denies chest pain to me currently. She is quite anxious on arrival. She states that she has had nausea vomiting and has not been able to tolerate anything for the past several days. No significant abdominal pain. She states she also is having hot and cold flashes. - Related Data Home Medications Medication Instructions Recorded Confirmed Budesonide-Formot 160-4.5 Mcg 2 puff INHALATION RT-BID 11/13/19 03/13/22 [Symbicort 160-4.5 Mcg Inhaler] Ezetimibe [Zetia] 10 mg PO DAILY 11/13/19 03/13/22 Pregabalin [Lyrica] 150 mg PO BID 11/13/19 03/13/22 levETIRAcetam 1,000 mg PO BID 11/13/19 03/13/22 Metoprolol Tartrate [Lopressor] 25 mg PO BID 05/22/20 03/13/22 ALPRAZolam [Xanax] 1 mg PO BID PRN 07/12/20 03/13/22 Albuterol Sulfate [Albuterol 2 puff PO RT-Q6H PRN 03/13/22 03/13/22 Sulfate Hfa] Famotidine [Pepcid] 40 mg PO BID 03/13/22 03/13/22 Ubrogepant [Ubrelvy] 50 mg PO DAILY PRN 03/13/22 03/13/22 Previous Rx's Medication Instructions Recorded DULoxetine HCL [Cymbalta] 30 mg PO BID 03/16/22 Folic Acid 1 mg PO DAILY 30 Days #30 tab 03/16/22 Prazosin [Minipress] 2 mg PO HS 30 Days #30 cap 03/16/22 Thiamine [Vitamin B-1] 100 mg PO BID-W/MEALS 30 Days #30 03/16/22 tab Allergies Allergy/AdvReac Type Severity Reaction Status Date / Time Penicillins Allergy Severe Swelling Verified 05/06/22 08:38 metoclopramide [From Reglan] Allergy Mild Unknown Verified 05/06/22 08:38 buspirone Allergy Unknown Verified 05/06/22 08:38 codeine Allergy Unknown Verified 05/06/22 08:38 varenicline [From Chantix] Allergy Unknown Verified 05/06/22 08:38 Review of Systems ROS Statement: Those systems with pertinent positive or pertinent negative responses have been documented in the HPI. ROS Other: All systems not noted in ROS Statement are negative. Past Medical History Past Medical History: Coronary Artery Disease (CAD), Chest Pain / Angina, Myocardial Infarction ([place]) Additional Past Medical History / Comment(s): Right coronary artery dissection, mitochondrial myopathy, seizure disorder, Malignant Hyperthermia Last Myocardial Infarction Date:: 2017 History of Any Multi-Drug Resistant Organisms: None Reported Past Surgical History: Cholecystectomy, Heart Catheterization, Tubal Ligation Additional Past Surgical History / Comment(s): carpal tunnel Past Anesthesia/Blood Transfusion Reactions: Malignant Hyperthermia Additional Past Anesthesia/Blood Transfusion Reaction / Comment(s): MALIGNANT HYPERTHERMIA Past Psychological History: Anxiety, Depression Smoking Status: Current some day smoker Past Alcohol Use History: Abuse, Daily Past Drug Use History: None Reported - Past Family History Father Additional Family Medical History / Comment(s): Myotonia congenita Mother Family Medical History: No Reported History Additional Family Medical History / Comment(s): Grandmother had CVA General Exam General appearance: alert, anxious Head exam: Present: atraumatic, normocephalic Eye exam: Present: normal appearance, PERRL ENT exam: Present: mucous membranes dry Neck exam: Present: normal inspection. Absent: tenderness, meningismus Respiratory exam: Present: normal lung sounds bilaterally. Absent: respiratory distress, wheezes Cardiovascular Exam: Present: regular rate, normal rhythm GI/Abdominal exam: Present: soft. Absent: distended, tenderness Extremities exam: Present: normal inspection, normal capillary refill. Absent: pedal edema, calf tenderness Neurological exam: Present: alert, oriented X3, CN II-XII intact. Absent: motor sensory deficit Psychiatric exam: Present: anxious Skin exam: Present: warm, dry, intact. Absent: cyanosis Course Vital Signs 05/06/22 05/06/22 05/06/22 08:32 10:00 10:41 Temperature 98.6 F Pulse Rate 78 81 82 Respiratory 20 18 Rate Blood Pressure 131/98 137/83 O2 Sat by Pulse 97 98 98 Oximetry EKG Findings - EKG Comments: EKG Findings:: EKG: Sinus rhythm with a rate of 76, PA interval 148, QRS duration 77, QTC [address] segment elevation. Medical Decision Making - Medical Decision Making 52-year-old female presented with nausea vomiting, anxiety. Patient did mention chest pain but denies to me. She's given an EKG showing sinus rhythm without ischemic changes. She has stable vitals. She is given antiemetics and Ativan in the emergency department. Patient has normal laboratory testing. I did reevaluate and she is eager for discharge feeling better without further vomiting. - Lab Data Result diagrams: 05/06/22 09:01 05/06/22 09:01 Lab Results 05/06/22 05/06/22 05/06/22 Range/Units 09:01 09:01 09:01 WBC 8.9 (3.8-10.6) k/uL RBC 4.72 (3.80-5.40) m/uL Hgb 15.8 (11.4-16.0) gm/dL Hct 47.2 H (34.0-46.0) % MCV 100.0 D (80.0-100.0) fL MCH 33.4 (25.0-35.0) pg MCHC 33.4 (31.0-37.0) g/dL RDW 13.6 (11.5-15.5) % Plt Count 284 (150-450) k/uL MPV 7.8 Neutrophils % 77 % Lymphocytes % 16 % Monocytes % 5 % Eosinophils % 1 % Basophils % 0 % Neutrophils # 6.8 (1.3-7.7) k/uL Lymphocytes # 1.4 (1.0-4.8) k/uL Monocytes # 0.4 (0-1.0) k/uL Eosinophils # 0.1 (0-0.7) k/uL Basophils # 0.0 (0-0.2) k/uL PT 10.6 (9.0-12.0) sec INR 1.0 (<1.2) APTT 22.7 (22.0-30.0) sec Sodium 140 (137-145) mmol/L Potassium 4.1 (3.5-5.1) mmol/L Chloride 104 (98-107) mmol/L Carbon Dioxide 21 L (22-30) mmol/L Anion Gap 15 mmol/L BUN 11 (7-17) mg/dL Creatinine 0.68 (0.52-1.04) mg/dL Est GFR (CKD-EPI)AfAm >90 (>60 ml/min/1.73 sqM) Est GFR (CKD-EPI)NonAf >90 (>60 ml/min/1.73 sqM) Glucose 117 H (74-99) mg/dL Calcium 9.7 (8.4-10.2) mg/dL Magnesium 1.9 (1.6-2.3) mg/dL Total Bilirubin 0.7 (0.2-1.3) mg/dL AST 54 H (14-36) U/L ALT 47 H (4-34) U/L Alkaline Phosphatase 99 (38-126) U/L Ammonia (<30) umol/L Creatine Kinase 48 (30-135) U/L Troponin I (0.000-0.034) ng/mL Total Protein 7.5 (6.3-8.2) g/dL Albumin 4.5 (3.5-5.0) g/dL 05/06/22 05/06/22 Range/Units 09:01 09:01 WBC (3.8-10.6) k/uL RBC (3.80-5.40) m/uL Hgb (11.4-16.0) gm/dL Hct (34.0-46.0) % MCV (80.0-100.0) fL MCH (25.0-35.0) pg MCHC (31.0-37.0) g/dL RDW (11.5-15.5) % Plt Count (150-450) k/uL MPV Neutrophils % % Lymphocytes % % Monocytes % % Eosinophils % % Basophils % % Neutrophils # (1.3-7.7) k/uL Lymphocytes # (1.0-4.8) k/uL Monocytes # (0-1.0) k/uL Eosinophils # (0-0.7) k/uL Basophils # (0-0.2) k/uL PT (9.0-12.0) sec INR (<1.2) APTT (22.0-30.0) sec Sodium (137-145) mmol/L Potassium (3.5-5.1) mmol/L Chloride (98-107) mmol/L Carbon Dioxide (22-30) mmol/L Anion Gap mmol/L BUN (7-17) mg/dL Creatinine (0.52-1.04) mg/dL Est GFR (CKD-EPI)AfAm (>60 ml/min/1.73 sqM) Est GFR (CKD-EPI)NonAf (>60 ml/min/1.73 sqM) Glucose (74-99) mg/dL Calcium (8.4-10.2) mg/dL Magnesium (1.6-2.3) mg/dL Total Bilirubin (0.2-1.3) mg/dL AST (14-36) U/L ALT (4-34) U/L Alkaline Phosphatase (38-126) U/L Ammonia <9 (<30) umol/L Creatine Kinase (30-135) U/L Troponin I <0.012 (0.000-0.034) ng/mL Total Protein (6.3-8.2) g/dL Albumin (3.5-5.0) g/dL Disposition Clinical Impression: Dehydration, Nausea & vomiting Disposition: HOME SELF-CARE Condition: Fair Instructions (If sedation given, give patient instructions): Acute Nausea and Vomiting (ED) Is patient prescribed a controlled substance at d/c from ED?: No Referrals: Kvng Rm MD [Primary Care Provider] - 1-2 days Time of Disposition: 11:38
[2022-05-06 09:43] LABS: ALT 47 U/L (4-34); AST 54 U/L (14-36); African American GFR (CKD) >90 (>60 ml/min/1.73 sqM); Albumin 4.5 g/dL (3.5-5.0); Alkaline Phosphatase 99 U/L (38-126); Anion Gap 15 mmol/L; Blood Urea Nitrogen 11 mg/dL (7-17); Calcium 9.7 mg/dL (8.4-10.2); Carbon Dioxide 21 mmol/L (22-30); Chloride 104 mmol/L (98-107); Creatine Kinase 48 U/L (30-135); Glucose 117 mg/dL (74-99); Magnesium 1.9 mg/dL (1.6-2.3); Non-African American GFR(CKD) >90 (>60 ml/min/1.73 sqM); Sodium 140 mmol/L (137-145); Total Bilirubin 0.7 mg/dL (0.2-1.3); Total Protein 7.5 g/dL (6.3-8.2)
[2022-05-06 09:44] LABS: Potassium 4.1 mmol/L (3.5-5.1)
--- NOTE | 2022-05-06 10:04 | XR ---
EXAMINATION TYPE: XR chest 2V DATE OF EXAM: 05/06/2022 COMPARISON: Chest x-ray and chest CT 03/13/2022 HISTORY: Chest pain TECHNIQUE: Frontal and lateral views of the chest are obtained. FINDINGS: There is no focal air space opacity, pleural effusion, or pneumothorax seen. The cardiac silhouette size is within normal limits. The osseous structures are intact. IMPRESSION: No acute cardiopulmonary process.
[2022-05-06 10:41] VITALS: BP 137/83
[2022-05-06 10:42] VITALS: PULSE 82; RESP 18
== END 2022-05-06 11:54 | disposition home or self-care (01) ==
LOC: EC 08:15
DX: E86.0 Dehydration (principal); R11.2 Nausea with vomiting, unspecified; G40.909 Epilepsy, unspecified, not intractable, without status epilepticus; I25.10 Atherosclerotic heart disease of native coronary artery without angina pectoris; I25.2 Old myocardial infarction; F32.A Depression, unspecified; F41.9 Anxiety disorder, unspecified; F17.200 Nicotine dependence, unspecified, uncomplicated; Z79.51 Long term (current) use of inhaled steroids; Z79.899 Other long term (current) drug therapy; Z88.0 Allergy status to penicillin
CPT/HCPCS: 36415; 93005; 80053; 82140; 82550; 83735; 84484; 85025; 85610; 85730; 71046; 99284; 96374; 96375; 96361 ×3; J2060; J2405

== ENCOUNTER 2024-12-16 19:39 | Observation (INO) | payer MEDICARE, OTHER ==
[2024-12-16] MEDS ORDERED: LORazepam 0.5 MG TAB PO PRN (19:49)
[2024-12-16] MEDS ORDERED: LORazepam 2 MG/ML INJ IV PRN ×2 (19:49)
[2024-12-16] MEDS ORDERED: LORazepam 1 MG TAB PO PRN ×3 (19:49)
--- NOTE | 2024-12-16 19:49 | ED ---
Chest Pain HPI - General Chief Complaint: Chest Pain Stated Complaint: Chest Pain Time Seen by Provider: 12/16/24 19:45 Source: patient, EMS, RN notes reviewed, old records reviewed Mode of arrival: EMS Limitations: no limitations - History of Present Illness Initial Comments: This is a 54-year-old female with history of aortic injury coming in for chest pain severe chest pain with alcohol history and history of aortic aneurysm coming in for chest pain shortness of breath history of smoking history of alcohol abuse. Patient is diaphoretic weak and short of breath here in the emergency department MD Complaint: chest pain -: days(s) Onset: during rest, during exertion Pain Location: substernal, left chest Pain Radiation: LUE Severity: moderate Severity scale (1-10): 4 Quality: tightness Consistency: constant Improves With: nothing Worsens With: nothing Anginal Symptoms: nausea Other Symptoms: palpitations Treatments Prior to Arrival: none - Related Data Home Medications Medication Instructions Recorded Confirmed Budesonide-Formot 160-4.5 Mcg 2 puff INHALATION RT-BID 11/13/19 03/13/22 [Symbicort 160-4.5 Mcg Inhaler] Ezetimibe [Zetia] 10 mg PO DAILY 11/13/19 03/13/22 Pregabalin [Lyrica] 150 mg PO BID 11/13/19 03/13/22 levETIRAcetam 1,000 mg PO BID 11/13/19 03/13/22 Metoprolol Tartrate [Lopressor] 25 mg PO BID 05/22/20 03/13/22 ALPRAZolam [Xanax] 1 mg PO BID PRN 07/12/20 03/13/22 Albuterol Sulfate [Albuterol 2 puff PO RT-Q6H PRN 03/13/22 03/13/22 Sulfate Hfa] Famotidine [Pepcid] 40 mg PO BID 03/13/22 03/13/22 Ubrogepant [Ubrelvy] 50 mg PO DAILY PRN 03/13/22 03/13/22 Previous Rx's Medication Instructions Recorded DULoxetine HCL [Cymbalta] 30 mg PO BID 03/16/22 Folic Acid 1 mg PO DAILY 30 Days #30 tab 03/16/22 Prazosin [Minipress] 2 mg PO HS 30 Days #30 cap 03/16/22 Thiamine [Vitamin B-1] 100 mg PO BID-W/MEALS 30 Days #30 03/16/22 tab Allergies Allergy/AdvReac Type Severity Reaction Status Date / Time Penicillins Allergy Severe Swelling Verified 12/16/24 19:44 metoclopramide [From Reglan] Allergy Mild Unknown Verified 12/16/24 19:44 buspirone Allergy Unknown Verified 12/16/24 19:44 codeine Allergy Unknown Verified 12/16/24 19:44 varenicline [From Chantix] Allergy Unknown Verified 12/16/24 19:44 morphine AdvReac Unknown Verified 12/16/24 19:58 Review of Systems ROS Statement: Those systems with pertinent positive or pertinent negative responses have been documented in the HPI. ROS Other: All systems not noted in ROS Statement are negative. Past Medical History Past Medical History: Coronary Artery Disease (CAD), Chest Pain / Angina, Myocardial Infarction ([place]) Additional Past Medical History / Comment(s): Right coronary artery dissection, mitochondrial myopathy, seizure disorder, Malignant Hyperthermia Last Myocardial Infarction Date:: 2017 History of Any Multi-Drug Resistant Organisms: None Reported Past Surgical History: Cholecystectomy, Heart Catheterization, Tubal Ligation Additional Past Surgical History / Comment(s): carpal tunnel Past Anesthesia/Blood Transfusion Reactions: Malignant Hyperthermia Additional Past Anesthesia/Blood Transfusion Reaction / Comment(s): MALIGNANT HYPERTHERMIA Past Psychological History: Anxiety, Depression Smoking Status: Current some day smoker Past Alcohol Use History: Abuse, Daily Past Drug Use History: None Reported - Past Family History Father Additional Family Medical History / Comment(s): Myotonia congenita Mother Family Medical History: No Reported History Additional Family Medical History / Comment(s): Grandmother had CVA General Exam Limitations: no limitations General appearance: alert, in no apparent distress Head exam: Present: atraumatic, normocephalic, normal inspection Eye exam: Present: normal appearance, PERRL, EOMI. Absent: scleral icterus, conjunctival injection, periorbital swelling ENT exam: Present: normal exam, mucous membranes moist Neck exam: Present: normal inspection. Absent: tenderness, meningismus, lymphadenopathy Respiratory exam: Present: normal lung sounds bilaterally. Absent: respiratory distress, wheezes, rales, rhonchi, stridor Cardiovascular Exam: Present: regular rate, normal rhythm, normal heart sounds. Absent: systolic murmur, diastolic murmur, rubs, gallop, clicks GI/Abdominal exam: Present: soft, normal bowel sounds. Absent: distended, tenderness, guarding, rebound, rigid Extremities exam: Present: normal inspection, full ROM, normal capillary refill. Absent: tenderness, pedal edema, joint swelling, calf tenderness Back exam: Present: normal inspection Neurological exam: Present: alert, oriented X3, CN II-XII intact Psychiatric exam: Present: normal affect, normal mood Skin exam: Present: warm, dry, intact, normal color. Absent: rash Course Vital Signs 12/16/24 12/16/24 12/16/24 19:40 19:45 19:46 Temperature 99.1 F Pulse Rate 127 H Pulse Rate [ 128 H Learning And Development Intern ] Respiratory 24 Rate Blood Pressure 131/104 O2 Sat by Pulse 91 L 93 L Oximetry 12/16/24 20:05 Temperature Pulse Rate 115 H Pulse Rate [ Learning And Development Intern ] Respiratory 22 Rate Blood Pressure 141/89 O2 Sat by Pulse 94 L Oximetry - Reevaluation(s) Reevaluation #1: 12/16/24 21:01 Medical record is reviewed Reevaluation #2: 12/16/24 21:23 Patient symptoms relatively unchanged here in the ER Reevaluation #3: 12/16/24 21:23 Patient informed of results and questions answered Reevaluation #4: Was pt. sent in by a medical professional or institution (Dr. PA, SINGLE WIRE SAW OPERATOR, urgent care, hospital, or [facility]...) When possible be specific @ -no Did you speak to anyone other than the patient for history (EMS, parent, family, police, friend...)? What history was obtained from this source @ -no Did you review nursing and triage notes (agree or disagree)? Why? @ -agree Are old charts reviewed (outside hosp., previous admission, EMS record, old EKG, old radiological studies, urgent care reports/EKG's, [facility] records)? Report findings @ -yes Differential Diagnosis (chest pain, altered mental status, abdominal pain women, abdominal pain men, vaginal bleeding, weakness, fever, dyspnea, syncope, headache, dizziness, GI bleed, back pain, seizure, CVA, palpatations, mental health, musculoskeletal)? @ -prior EKG interpreted by me (3pts min.). @ -yes X-rays interpreted by me (1pt min.). @ -yes negative for acute disease CT interpreted by me (1pt min.). @ -no U/S interpreted by me (1pt. min.). @ -no What testing was considered but not performed or refused? (CT, X-rays, U/S, labs)? Why? @ -none What meds were considered but not given or refused? Why? @ -none Did you discuss the management of the patient with other professionals (professionals i.e. , PA, SINGLE WIRE SAW OPERATOR, lab, RT, psych nurse, social worker assistant, event marketing intern, teacher, registration officer, child support case officer)? Give summary @ -no Was smoking cessation discussed for >3mins.? @ -no Was critical care preformed (if so, how long)? @ -no Were there social determinants of health that impacted care today? How? (Homelessness, low income, unemployed, alcoholism, drug addiction, transportation, low edu. Level, literacy, decrease access to med. care, alf, rehab)? @ -none Was there de-escalation of care discussed even if they declined (Discuss DNR or withdrawal of care, Hospice)? DNR status @ -no What co-morbidities impacted this encounter? (DM, HTN, Smoking, COPD, CAD, Cancer, CVA, ARF, Chemo, Hep., AIDS, mental health diagnosis, sleep apnea, morbid obesity)? @ -none Was patient admitted / discharged? Hospital course, mention meds given and route, prescriptions, significant lab abnormalities, going to OR and other pertinent info. @ - Undiagnosed new problem with uncertain prognosis? @ -no Drug Therapy requiring intensive monitoring for toxicity (Heparin, Nitro, Insulin, Cardizem)? @ -no Were any procedures done? @ -no Diagnosis/symptom? @ - Acute, or Chronic, or Acute on Chronic? @ -Acute Uncomplicated (without systemic symptoms) or Complicated (systemic symptoms)? @ -Complicated Side effects of treatment? @ -no Exacerbation, Progression, or Severe Exacerbation? @ -exacerbation Poses a threat to life or bodily function? How? (Chest pain, [place], AR, pneumonia, PE, COPD, DKA, ARF, appy, cholecystitis, CVA, Diverticulitis, Homicidal, Suicidal, threat to staff... and all critical care pts) @ -yes Reevaluation #5: Differential Chest Pain: Stable Angina, Unstable Angina, STEMI, NSTEMI Aortic Dissection, Pneumothorax, Musculoskeletal, Esophageal Spasm GERD, Cholecystitis, Pancreatitis, Zoster, this is not meant to be an all-inclusive list. - Consultations Consultation #1: Spoke with sound who agrees to admit this patient Chest Pain MDM - MDM 54 female will be admitted for chest pain observation and COPD exacerbation with history of drug abuse and alcohol abuse Disposition Clinical Impression: Chest pain, Unstable angina pectoris, Alcohol abuse, Palpitations, Acute exacerbation of COPD with asthma Disposition: ADMITTED IP TO THIS HOSP Condition: Fair Is patient prescribed a controlled substance at d/c from ED?: No Referrals: Kvng Rm MD [Primary Care Provider] - 1-2 days Time of Disposition: 21:20
[2024-12-16] MEDS: MORPHINE SULFATE 4 MG/ML SYRINGE IV STA (19:57)
[2024-12-16] MEDS: SODIUM CHLORIDE 0.9% 1,000 ML IV STA (19:59)
[2024-12-16] MEDS: HYDROmorphone 0.5 MG/0.5 ML SYRINGE IVP STA (20:07)
[2024-12-16 20:33] LABS: Basophils # (A) 0.1 k/uL (0-0.2); Basophils % (A) 1 %; Eosinophils # (A) 0.1 k/uL (0-0.7); Eosinophils % (A) 1 %; HCT 46.4 % (34.0-46.0); HGB 15.3 gm/dL (11.4-16.0); Lymphocytes # (A) 1.7 k/uL (1.0-4.8); Lymphocytes % (A) 15 %; MCH 30.7 pg (25.0-35.0); MCV 93.1 fL (80.0-100.0); Mean Platelet Volume 7.7; Monocytes # (A) 0.7 k/uL (0-1.0); Monocytes % (A) 7 %; Neutrophils # (A) 8.6 k/uL (1.3-7.7); Neutrophils % (A) 76 %; Platelet Count 252 k/uL (150-450); RBC 4.98 m/uL (3.80-5.40); RDW 12.6 % (11.5-15.5); WBC 11.4 k/uL (3.8-10.6)
[2024-12-16 20:49] LABS: ALT 21 U/L (4-34); AST 24 U/L (14-36); African American GFR (CKD) >90 (>60 ml/min/1.73 sqM); Albumin 4.5 g/dL (3.5-5.0); Alcohol <10 mg/dL; Alkaline Phosphatase 81 U/L (38-126); Anion Gap 13 mmol/L; Blood Urea Nitrogen 8 mg/dL (7-17); Calcium 9.9 mg/dL (8.4-10.2); Carbon Dioxide 22 mmol/L (22-30); Chloride 106 mmol/L (98-107); Glucose 122 mg/dL (74-99); Lipase 171 U/L (23-300); Magnesium 1.9 mg/dL (1.6-2.3); Non-African American GFR(CKD) >90 (>60 ml/min/1.73 sqM); Potassium 4.4 mmol/L (3.5-5.1); Sodium 141 mmol/L (137-145); Total Bilirubin 0.7 mg/dL (0.2-1.3); Total Protein 7.1 g/dL (6.3-8.2)
[2024-12-16 20:57] LABS: NT-Pro-B-Type Natriuretic Pept 168 pg/mL
[2024-12-16 20:58] LABS: Partial Thromboplastin Time 25.4 sec (22.0-30.0); Prothrombin Time 10.8 sec (10.0-12.5)
--- NOTE | 2024-12-16 21:15 | CT ---
EXAMINATION TYPE: CT noncontrast chest abdomen pelvis. CT angio thor/abd pel aorta DATE OF EXAM: 12/16/2024 8:48 PM COMPARISON: Previous CT chest Study 03/13/2022.. CLINICAL INDICATION: Female, 54 years old with history of dissection; PHH, CHEST PAIN TECHNIQUE: Noncontrast CT chest followed by CT angiogram chest abdomen pelvis. A noncontrast CT chest Multiple a xial CT images of the chest, abdomen, and pelvis were obtained prior to and after the administration of IV contrast. 3-D reformats and maximum intensity projection format were performed on a separate wo rkstation. . Contrast used:100 mL of Isovue 370 without and with IV Contrast, CT DLP: 1555.2 mGycm, Automated exposure control for dose reduction was used. FINDINGS: Heart size within normal limits. No pericardial effusion. Noncontrast portion the study demonstrates no evidence of intramural hematoma. Thoracic aorta without aneurysmal dilatation or acute focal disse ction. No dissecting in the visualized portion of the abdominal aorta and bilateral common iliac bella tete. Diffuse mixed calcified atherosclerotic disease of the abdominal aorta. No pathologic mediastinal or hilar lymphadenopathy. No central pulmonary artery filling defect to sug gest acute pulmonary embolism. No epiglottic axillary lymphadenopathy. Findings imaging through the lungs demonstrates centrilobular and paraseptal emphysema, most pronounc ed in the apices. No acute focal consolidation. No pleural effusion or pneumothorax. No suspicious pu lmonary mass. No acute osseous abnormality in the thorax. Thoracic spine vertebral body heights appea r maintained. Liver unremarkable. Gallbladder surgically absent. Spleen normal size and morphology. No suspicious a drenal gland nodule. Pancreas unremarkable. No abnormal biliary ductal dilatation. No pathologic gagan toneal or mesenteric lymphadenopathy. Scattered colonic diverticula without acute diverticulitis. Mil d nonspecific wall thickening of the sigmoid colon without adjacent mesenteric inflammation, recommen d outpatient correlation with colonoscopy if clinically warranted. Kidneys enhancement bilaterally. N o hydronephrosis or ureter. No evidence of nephrolithiasis or a suspicious renal mass. A kind of significant free fluid or free air in the abdomen/pelvis. Uterus with calcified fibroid changes likely. No acute fracture or dislocation. Spinal stimulator dev ice noted. Small hiatal hernia. IMPRESSION: No evidence of thoracic or abdominal aortic aneurysm or acute focal dissection. No central pulmonary artery embolism. [facility], Workstation: [id number], 12/16/2024 9:12 PM
[2024-12-16] MEDS ORDERED: MORPHINE SULFATE 4 MG/ML SYRINGE IV PRN (21:21)
[2024-12-16] MEDS ORDERED: NALOXONE 0.4 MG/ML 1 ML VIAL IV PRN (21:21)
[2024-12-16] MEDS: IPRATROPIUM-ALBUTEROL 3 ML NEB INHALATION STA (21:31)
[2024-12-16] MEDS: FAMOTIDINE 20 MG/2 ML VIAL IV STA (21:36)
[2024-12-16] MEDS: SODIUM CHLORIDE 0.9% 1,000 ML IV SCH (21:36)
[2024-12-16] MEDS: LORazepam 2 MG/ML INJ IV PRN (23:08)
[2024-12-17] MEDS: methylPREDNISolone SOD SUCCI 125 MG/2 ML VIAL IV SCH (00:28)
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
[2024-12-17 02:56] LABS: Basophils % (A) 0 %; Eosinophils # (A) 0.1 k/uL (0-0.7); Eosinophils % (A) 1 %; HCT 41.2 % (34.0-46.0); HGB 13.5 gm/dL (11.4-16.0); Lymphocytes # (A) 1.2 k/uL (1.0-4.8); Lymphocytes % (A) 15 %; MCH 30.5 pg (25.0-35.0); MCHC 32.8 g/dL (31.0-37.0); MCV 92.9 fL (80.0-100.0); Monocytes # (A) 0.3 k/uL (0-1.0); Monocytes % (A) 4 %; Neutrophils # (A) 6.3 k/uL (1.3-7.7); Neutrophils % (A) 80 %; Platelet Count 219 k/uL (150-450); RBC 4.44 m/uL (3.80-5.40); RDW 12.9 % (11.5-15.5); WBC 7.9 k/uL (3.8-10.6)
[2024-12-17 03:11] LABS: ALT 18 U/L (4-34); AST 18 U/L (14-36); African American GFR (CKD) >90 (>60 ml/min/1.73 sqM); Albumin 3.9 g/dL (3.5-5.0); Alkaline Phosphatase 62 U/L (38-126); Anion Gap 9 mmol/L; Blood Urea Nitrogen 5 mg/dL (7-17); Calcium 9.1 mg/dL (8.4-10.2); Carbon Dioxide 24 mmol/L (22-30); Chloride 107 mmol/L (98-107); Glucose 113 mg/dL (74-99); Non-African American GFR(CKD) >90 (>60 ml/min/1.73 sqM); Phosphorus 3.5 mg/dL (2.5-4.5); Potassium 4.3 mmol/L (3.5-5.1); Sodium 140 mmol/L (137-145); Total Bilirubin 0.5 mg/dL (0.2-1.3); Total Protein 6.2 g/dL (6.3-8.2)
[2024-12-17] MEDS: ALPRAZolam 0.5 MG TAB PO STA (03:40)
[2024-12-17] MEDS: ALBUTEROL NEBULIZED 2.5 MG/3 ML INHALATION PRN (07:42)
[2024-12-17] MEDS: MULTIVITAMINS, THERA 1 EACH TAB PO SCH (08:08)
[2024-12-17] MEDS: FOLIC ACID 1 MG TAB PO SCH (08:08)
[2024-12-17] MEDS: PANTOPRAZOLE 40 MG/10 ML VIAL IV SCH (08:09)
[2024-12-17] MEDS: ENOXAPARIN 40 MG/0.4 ML SYRINGE SQ SCH (08:09)
[2024-12-17] MEDS: METOPROLOL TARTRATE 25 MG TAB PO SCH (09:12)
[2024-12-17] MEDS: LOSARTAN 50 MG TAB PO STA (09:12)
[2024-12-17] MEDS: ASPIRIN 81 MG PO SCH (09:12)
[2024-12-17] MEDS: ONDANSETRON 4 MG/2 ML VIAL IVP PRN (09:12)
[2024-12-17] MEDS ORDERED: ACETAMINOPHEN TAB 325 MG TAB PO PRN (09:56)
[2024-12-17 10:24] VITALS: TEMP 98
[2024-12-17 10:31] VITALS: BP 108/79
[2024-12-17 10:36] VITALS: PULSE 109; RESP 14
--- NOTE | 2024-12-17 13:23 | CA ---
Transthoracic Echo Report Name: Yael Page Age: 54 Gender: F : 1970 Exam Date: 12/17/2024 08:49 Exam Location: [facility] Ht (in): 64 Wt (lb): 189 Ordering Physician: Farheen Key MD Attending/Referring Phys: Aircraft Air Conditioning Mechanic Elif Menezes RDCS Procedure CPT: Indications: Chest Pain Cardiac Hx: Hx of dissection Technical Quality: Fair Contrast 1: Total Dose (mL): Contrast 2: Total Dose (mL): MEASUREMENTS (Male / Female) Normal Values 2D ECHO LV Diastolic Diameter PLAX 4.4 cm 4.2 - 5.9 / 3.9 - 5.3 cm LV Systolic Diameter PLAX 2.5 cm IVS Diastolic Thickness 0.9 cm 0.6 - 1.0 / 0.6 - 0.9 cm LVPW Diastolic Thickness 1.2 cm 0.6 - 1.0 / 0.6 - 0.9 cm LV Relative Wall Thickness 0.5 RV Internal Dim ED PLAX 4.0 cm LA Systolic Diameter LX 3.5 cm 3.0 - 4.0 / 2.7 - 3.8 cm LA Volume 31.6 cm??? 18 - 58 / 22 - 52 cm??? LA Volume Index 15.8 cm???/m??? 16 - 28 cm???/m??? M-MODE Aortic Root Diameter MM 2.9 cm AV Cusp Separation MM 2.3 cm DOPPLER AV Peak Velocity 148.2 cm/s AV Peak Gradient 8.8 mmHg MV Area PHT 4.4 cm??? Mitral E Point Velocity 89.1 cm/s Mitral A Point Velocity 132.2 cm/s Mitral E to A Ratio 0.7 MV Deceleration Time 171.9 ms TR Peak Velocity 194.5 cm/s TR Peak Gradient 15.1 mmHg Right Ventricular Systolic Press 19.4 mmHg FINDINGS Left Ventricle Left ventricular ejection fraction is estimated at 55-60 %. Left ventricular cavity size normal. Left ventricular wall thickness normal. Normal left ventricular wall motion. Right Ventricle Moderate right ventricular dilatation. Right ventricular systolic pressure within normal limits. Right Atrium Normal right atrial size. No right atrial thrombus or mass seen. Left Atrium Normal left atrial size. No left atrial thrombus or mass present. Mitral Valve Structurally normal mitral valve. No mitral stenosis, regurgitation or prolapse. Aortic Valve Trileaflet aortic valve. No aortic valve stenosis or regurgitation. Tricuspid Valve Structurally normal tricuspid valve. Mild tricuspid regurgitation. Pulmonic Valve Structurally normal pulmonic valve. No pulmonic regurgitation. Pericardium No pericardial effusion. Aorta Normal size aortic root and proximal ascending aorta. CONCLUSIONS Normal LV size and systolic function. Moderate right ventricular enlargement. Aortic valve sclerosis and mitral annular calcification without restriction. No pericardial effusion Previewed by: Dr. Lazara Hancock MD (Electronically Signed) Final Date: 17 December 2024 13:22
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
[2024-12-17 14:37] LABS: T4, Free (Free Thyroxine) 1.37 ng/dL (0.78-2.19)
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
== END 2024-12-17 13:07 | disposition home or self-care (01) ==
LOC: EC 19:39 → 6NMEDSUR 21:22
PROVIDERS: ADMIT Internal Medicine; ATTEND Internal Medicine
DX: R07.89 Other chest pain (principal); F41.9 Anxiety disorder, unspecified; F43.89 Other reactions to severe stress; I25.10 Atherosclerotic heart disease of native coronary artery without angina pectoris; J44.1 Chronic obstructive pulmonary disease with (acute) exacerbation; F10.20 Alcohol dependence, uncomplicated; G40.909 Epilepsy, unspecified, not intractable, without status epilepticus; I10 Essential (primary) hypertension; E78.5 Hyperlipidemia, unspecified; D72.829 Elevated white blood cell count, unspecified; E78.00 Pure hypercholesterolemia, unspecified; F17.210 Nicotine dependence, cigarettes, uncomplicated; Z53.29 Procedure and treatment not carried out because of patient's decision for other reasons; Z79.51 Long term (current) use of inhaled steroids; Z79.899 Other long term (current) drug therapy; Z88.0 Allergy status to penicillin; Z88.5 Allergy status to narcotic agent; Z88.8 Allergy status to other drugs, medicaments and biological substances; Z86.79 Personal history of other diseases of the circulatory system; Y90.0 Blood alcohol level of less than 20 mg/100 ml
CPT/HCPCS: 96372; 96375 ×2; 96361; 96374; 99285; 36415; 94640; 93005; 93306; 85379; 84439; 83880; 80053 ×2; 83690; 83735 ×2; 84100; 84443; 84484 ×2; 85025 ×2; 85610; 85730; 71275; 74174; G0378 ×2; G0480; J2060 ×2; J2405; J1650; J3490; J1171; Q9967; J2919; J2470; 80320

== ENCOUNTER 2025-01-16 11:09 | Emergency (ER) | payer MEDICARE, OTHER ==
--- NOTE | 2025-01-16 11:13 | ED ---
GI Bleed HPI - General Stated complaint: chest pain Time Seen by Provider: 01/16/25 11:11 - Related Data Home Medications Medication Instructions Recorded Confirmed ALPRAZolam [Xanax] 0.5 mg PO TID PRN 12/17/24 12/17/24 Albuterol Sulfate [Albuterol 2 puff PO RT-Q6H PRN 12/17/24 12/17/24 Sulfate Hfa] Budesonide/Formoterol Fumarate 2 puff INHALATION RT-BID PRN 12/17/24 12/17/24 [Symbicort 160-4.5 Mcg Inhaler] DULoxetine HCL [Cymbalta] 60 mg PO DAILY 12/17/24 12/17/24 Ezetimibe [Zetia] 10 mg PO DAILY 12/17/24 12/17/24 Famotidine [Pepcid] 40 mg PO BID 12/17/24 12/17/24 Folic Acid 1 mg PO DAILY 12/17/24 12/17/24 Metoprolol Tartrate [Lopressor] 25 mg PO BID 12/17/24 12/17/24 Ondansetron Odt [Zofran Odt] 8 mg PO Q8HR PRN 12/17/24 12/17/24 Pregabalin [Lyrica] 150 mg PO BID 12/17/24 12/17/24 levETIRAcetam [Keppra] 1,000 mg PO BID 12/17/24 12/17/24 levOCARNitine 330 mg PO TID 12/17/24 12/17/24 risperiDONE [RisperDAL] 0.5 mg PO DAILY 12/17/24 12/17/24 risperiDONE [RisperDAL] 2 mg PO HS 12/17/24 12/17/24 Allergies Allergy/AdvReac Type Severity Reaction Status Date / Time Penicillins Allergy Severe Swelling Verified 01/16/25 11:17 metoclopramide [From Reglan] Allergy Mild Unknown Verified 01/16/25 11:17 buspirone Allergy Unknown Verified 01/16/25 11:17 codeine Allergy Unknown Verified 01/16/25 11:17 varenicline [From Chantix] Allergy Unknown Verified 01/16/25 11:17 morphine AdvReac Unknown Verified 01/16/25 11:17 Review of Systems ROS Statement: Those systems with pertinent positive or pertinent negative responses have been documented in the HPI. ROS Other: All systems not noted in ROS Statement are negative. Past Medical History Past Medical History: Coronary Artery Disease (CAD), Chest Pain / Angina, Myocardial Infarction (DC) Additional Past Medical History / Comment(s): Right coronary artery dissection, mitochondrial myopathy, seizure disorder, Malignant Hyperthermia Last Myocardial Infarction Date:: 2017 History of Any Multi-Drug Resistant Organisms: None Reported Past Surgical History: Cholecystectomy, Heart Catheterization, Tubal Ligation Additional Past Surgical History / Comment(s): carpal tunnel Past Anesthesia/Blood Transfusion Reactions: Malignant Hyperthermia Additional Past Anesthesia/Blood Transfusion Reaction / Comment(s): MALIGNANT HYPERTHERMIA Past Psychological History: Anxiety, Depression Smoking Status: Current some day smoker Past Alcohol Use History: Abuse, Daily Past Drug Use History: None Reported - Past Family History Father Additional Family Medical History / Comment(s): Myotonia congenita Mother Family Medical History: No Reported History Additional Family Medical History / Comment(s): Grandmother had CVA Course Vital Signs 01/16/25 11:11 Temperature 98 F Pulse Rate 74 Respiratory 18 Rate Blood Pressure 107/71 O2 Sat by Pulse 92 L Oximetry Medical Decision Making - EKG Data -: EKG Interpreted by Me (EKG is sinus 89 ID 159 QRS 64 QTc 392) Disposition Referrals: Kvng Rm MD [Primary Care Provider] - 1-2 days
[2025-01-16 11:17] VITALS: TEMP 98
[2025-01-16 11:41] LABS: Basophils % (A) 0 %; Eosinophils # (A) 0.2 k/uL (0-0.7); Eosinophils % (A) 2 %; HCT 47.7 % (34.0-46.0); HGB 15.1 gm/dL (11.4-16.0); Lymphocytes # (A) 2.3 k/uL (1.0-4.8); Lymphocytes % (A) 25 %; MCH 29.7 pg (25.0-35.0); MCHC 31.7 g/dL (31.0-37.0); MCV 93.7 fL (80.0-100.0); Monocytes # (A) 0.5 k/uL (0-1.0); Monocytes % (A) 6 %; Neutrophils # (A) 6.1 k/uL (1.3-7.7); Neutrophils % (A) 66 %; Platelet Count 300 k/uL (150-450); RBC 5.09 m/uL (3.80-5.40); RDW 13.1 % (11.5-15.5); WBC 9.3 k/uL (3.8-10.6)
[2025-01-16] MEDS: SODIUM CHLORIDE 0.9% 1,000 ML IV STA ×2 (11:47→12:34)
[2025-01-16 11:49] LABS: ALT 20 U/L (4-34); AST 26 U/L (14-36); African American GFR (CKD) >90 (>60 ml/min/1.73 sqM); Albumin 3.8 g/dL (3.5-5.0); Alcohol <10 mg/dL; Alkaline Phosphatase 65 U/L (38-126); Anion Gap 10 mmol/L; Blood Urea Nitrogen 11 mg/dL (7-17); Calcium 9.2 mg/dL (8.4-10.2); Carbon Dioxide 25 mmol/L (22-30); Chloride 104 mmol/L (98-107); Glucose 130 mg/dL (74-99); Lipase 387 U/L (23-300); Magnesium 1.8 mg/dL (1.6-2.3); Non-African American GFR(CKD) >90 (>60 ml/min/1.73 sqM); Phosphorus 4.7 mg/dL (2.5-4.5); Potassium 4.4 mmol/L (3.5-5.1); Sodium 139 mmol/L (137-145); Total Bilirubin 0.4 mg/dL (0.2-1.3); Total Protein 6.3 g/dL (6.3-8.2)
[2025-01-16 11:50] LABS: Partial Thromboplastin Time 23.8 sec (22.0-30.0); Prothrombin Time 10.7 sec (10.0-12.5)
[2025-01-16 11:57] LABS: NT-Pro-B-Type Natriuretic Pept 71 pg/mL
[2025-01-16] MEDS: LORazepam 2 MG/ML INJ IV STA (12:34)
--- NOTE | 2025-01-16 12:34 | XR ---
EXAMINATION TYPE: XR chest 2V DATE OF EXAM: 01/16/2025 11:57 AM COMPARISON: Chest radiographs from 05/06/2022 CLINICAL INDICATION: Female, 54 years old with history of Chest Pain; [facility] TECHNIQUE: XR chest 2V Frontal and lateral views of the chest. FINDINGS: Lungs/Pleura: There is flattening of the diaphragm with increased lucency of the lungs. No evidence o f pneumothorax, pleural effusion or focal consolidation. Pulmonary vascularity: Unremarkable. Heart/mediastinum: Cardiomediastinal silhouette is unremarkable. Musculoskeletal: No acute osseous pathology. IMPRESSION: 1. No acute cardiopulmonary disease process. 2. COPD changes. [facility], , 01/16/2025 12:31 PM
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
[2025-01-16] MEDS: ONDANSETRON 4 MG/2 ML VIAL IVP STA (13:40)
[2025-01-16 15:23] VITALS: BP 114/67; PULSE 93; RESP 16
== END 2025-01-16 15:27 | disposition home or self-care (01) ==
LOC: SUPCPDRO 11:09 → EC 11:09
DX: R07.89 Other chest pain (principal); R00.2 Palpitations; F17.200 Nicotine dependence, unspecified, uncomplicated; Z88.5 Allergy status to narcotic agent; Z88.0 Allergy status to penicillin; Z88.8 Allergy status to other drugs, medicaments and biological substances
CPT/HCPCS: 36415; 93005; 83880; 80053; 83690; 83735; 84100; 84484; 85025; 85610; 85730; 71046; 99285; 96374; 96361; G0480; J2060; 80320

== ENCOUNTER 2025-04-10 09:39 | Emergency (ER) | payer MEDICARE, OTHER ==
[2025-04-10 10:32] LABS: Basophils # (A) 0.07 10*3/uL (0.00-0.10); Basophils % (A) 0.6 %; Eosinophils # (A) 0.08 10*3/uL (0.04-0.35); Eosinophils % (A) 0.7 %; HCT 47.9 % (37.2-46.3); HGB 16.4 g/dL (12.0-15.0); Lymphocytes # (A) 2.46 10*3/uL (0.90-5.00); Lymphocytes % (A) 21.4 %; MCHC 34.2 g/dL (32.0-37.0); MCV 90.5 fL (80.0-97.0); Mean Platelet Volume 10.4 fL (9.5-12.2); Monocytes # (A) 0.56 10*3/uL (0.20-1.00); Monocytes % (A) 4.9 %; Neutrophils % (A) 72.1 %; Platelet Count 256 10*3/uL (140-440); RBC 5.29 10*6/uL (4.10-5.20); RDW 12.3 % (11.5-14.5)
[2025-04-10 10:39] LABS: ALT 14 U/L (4-34); AST 20 U/L (14-36); African American GFR (CKD) >90 (>60 ml/min/1.73 sqM); Albumin 4.2 g/dL (3.5-5.0); Alcohol <10 mg/dL; Alkaline Phosphatase 79 U/L (38-126); Anion Gap 13 mmol/L; Blood Urea Nitrogen 10 mg/dL (7-17); Calcium 10.1 mg/dL (8.4-10.2); Carbon Dioxide 23 mmol/L (22-30); Chloride 104 mmol/L (98-107); Glucose 115 mg/dL (74-99); Lipase 416 U/L (23-300); Magnesium 1.6 mg/dL (1.6-2.3); Non-African American GFR(CKD) >90 (>60 ml/min/1.73 sqM); Potassium 4.4 mmol/L (3.5-5.1); Sodium 140 mmol/L (137-145); Total Bilirubin 0.4 mg/dL (0.2-1.3); Total Protein 6.9 g/dL (6.3-8.2)
--- NOTE | 2025-04-10 10:41 | ED ---
General Adult HPI - General Chief complaint: Abdominal Pain Stated complaint: Belly pain Time Seen by Provider: 04/10/25 09:41 Source: patient, EMS Mode of arrival: EMS Limitations: no limitations - History of Present Illness Initial comments: 54 year old female presents to the ED for evaluation of nausea and vomiting since last night. She also reports having diffuse abdominal pain mainly in the RLQ that radiates to the back. She endorses feeling anxious. She denies any recent abdominal surgeries and says her gallbladder was removed many years ago. Patient states that she just feels very gassy, abdominal cramping. Patient denies any urinary symptoms no change in bowel habits. Patient is a former drinker states that she is not currently drinking. - Related Data Home Medications Medication Instructions Recorded Confirmed ALPRAZolam [Xanax] 0.5 mg PO TID PRN 12/17/24 01/16/25 Albuterol Sulfate [Albuterol 2 puff INHALATION RT-Q6H PRN 12/17/24 01/16/25 Sulfate Hfa] Budesonide/Formoterol Fumarate 2 puff INHALATION RT-BID PRN 12/17/24 01/16/25 [Symbicort 160-4.5 Mcg Inhaler] DULoxetine HCL [Cymbalta] 60 mg PO DAILY 12/17/24 01/16/25 Ezetimibe [Zetia] 10 mg PO DAILY 12/17/24 01/16/25 Famotidine [Pepcid] 40 mg PO BID 12/17/24 01/16/25 Folic Acid 1 mg PO DAILY 12/17/24 01/16/25 Metoprolol Tartrate [Lopressor] 25 mg PO BID 12/17/24 01/16/25 Ondansetron Odt [Zofran Odt] 8 mg PO Q8HR PRN 12/17/24 01/16/25 Pregabalin [Lyrica] 150 mg PO BID 12/17/24 01/16/25 levETIRAcetam [Keppra] 1,000 mg PO BID 12/17/24 01/16/25 levOCARNitine 330 mg PO TID 12/17/24 01/16/25 risperiDONE [RisperDAL] 0.5 mg PO DAILY 12/17/24 01/16/25 risperiDONE [RisperDAL] 2 mg PO HS 12/17/24 01/16/25 Albuterol Nebulized [Ventolin 2.5 mg INHALATION RT-Q6H PRN 01/16/25 01/16/25 Nebulized] DULoxetine HCL [Cymbalta] 30 mg PO DAILY 01/16/25 01/16/25 Prazosin [Minipress] 5 mg PO HS 01/16/25 01/16/25 Previous Rx's Medication Instructions Recorded Dicyclomine [Bentyl] 20 mg PO TID #30 tablet 04/10/25 Allergies Allergy/AdvReac Type Severity Reaction Status Date / Time Penicillins Allergy Severe Swelling Verified 04/10/25 09:48 metoclopramide [From Reglan] Allergy Mild Unknown Verified 04/10/25 09:48 buspirone Allergy Unknown Verified 04/10/25 09:48 codeine Allergy Unknown Verified 04/10/25 09:48 varenicline [From Chantix] Allergy Unknown Verified 04/10/25 09:48 morphine AdvReac Unknown Verified 04/10/25 09:48 Review of Systems ROS Statement: Those systems with pertinent positive or pertinent negative responses have been documented in the HPI. ROS Other: All systems not noted in ROS Statement are negative. Past Medical History Past Medical History: Coronary Artery Disease (CAD), Chest Pain / Angina, Myocardial Infarction ([place]) Additional Past Medical History / Comment(s): Right coronary artery dissection, mitochondrial myopathy, seizure disorder, Malignant Hyperthermia Last Myocardial Infarction Date:: 2017 History of Any Multi-Drug Resistant Organisms: None Reported Past Surgical History: Cholecystectomy, Heart Catheterization, Tubal Ligation Additional Past Surgical History / Comment(s): carpal tunnel Past Anesthesia/Blood Transfusion Reactions: Malignant Hyperthermia Additional Past Anesthesia/Blood Transfusion Reaction / Comment(s): MALIGNANT HYPERTHERMIA Past Psychological History: Anxiety, Depression Smoking Status: Current some day smoker Past Alcohol Use History: Daily Past Drug Use History: None Reported, Marijuana - Past Family History Father Additional Family Medical History / Comment(s): Myotonia congenita Mother Family Medical History: No Reported History Additional Family Medical History / Comment(s): Grandmother had CVA General Exam Limitations: no limitations General appearance: alert, in no apparent distress Head exam: Present: atraumatic, normocephalic, normal inspection Eye exam: Present: normal appearance, PERRL, EOMI. Absent: scleral icterus, conjunctival injection, periorbital swelling ENT exam: Present: normal exam, mucous membranes moist Neck exam: Present: normal inspection, full ROM. Absent: tenderness, meningismus, lymphadenopathy Respiratory exam: Present: normal lung sounds bilaterally. Absent: respiratory distress, wheezes, rales, rhonchi, stridor Cardiovascular Exam: Present: regular rate, normal rhythm, normal heart sounds. Absent: systolic murmur, diastolic murmur, rubs, gallop, clicks GI/Abdominal exam: Present: soft, tenderness (diffuse and radiates to the back), normal bowel sounds. Absent: distended, guarding, rebound, rigid Course Vital Signs 04/10/25 04/10/25 09:43 09:55 Temperature 98.1 F Pulse Rate 88 Respiratory 18 Rate Blood Pressure 167/114 O2 Sat by Pulse 99 Oximetry EKG Findings - EKG Comments: EKG Findings:: EKG performed at 10: 00 sinus rhythm rate of 74 SC 156 QRS 76 QT/QTc 373/400 - EKG Results: EKG: interpreted by [facility] Medical Decision Making - Medical Decision Making Was pt. sent in by a medical professional or institution (, PA, TECHNICAL PUBLICATIONS WRITER, urgent care, hospital, or longterm...) When possible be specific @ -No Did you speak to anyone other than the patient for history (EMS, parent, family, police, friend...)? What history was obtained from this source @ -No Did you review nursing and triage notes (agree or disagree)? Why? @ -I reviewed and agree with nursing and triage notes Were old charts reviewed (outside hosp., previous admission, EMS record, old EKG, old radiological studies, urgent care reports/EKG's, longterm records)? Report findings @ -No old charts were reviewed Differential Diagnosis (chest pain, altered mental status, abdominal pain women, abdominal pain men, vaginal bleeding, weakness, fever, dyspnea, syncope, headache, dizziness, GI bleed, back pain, seizure, CVA, palpatations, mental health, musculoskeletal)? @ -Differential Abdominal Pain Women: Appendicitis, Cholecystitis, diverticulosis, ischemic bowel, pancreatitis, hepatitis, UTI, gastroenteritis, AAA, incarcerated hernia, bowel obstruction, constipation, inflammatory bowel, hepatitis, peptic ulcer disease, splenic infarction, perforated viscus, vulvitis, ovarian torsion, PID, kidney stone, placenta abruption, this is not meant to be an all-inclusive list EKG interpreted by me (3pts min.). @ -As above X-rays interpreted by me (1pt min.). @ -None done CT interpreted by me (1pt min.). @ -CT abdomen pelvis showing no evidence of intra-abdominal process. U/S interpreted by me (1pt. min.). @ -None done What testing was considered but not performed or refused? (CT, X-rays, U/S, labs)? Why? @ -None What meds were considered but not given or refused? Why? @ -None Did you discuss the management of the patient with other professionals (professionals i.e. , PA, TECHNICAL PUBLICATIONS WRITER, lab, RT, psych nurse, psychiatric social worker, admiralty lawyer, teacher, public safety officer, behavioral health case manager)? Give summary @ -No Was smoking cessation discussed for >3mins.? @ -No Was critical care preformed (if so, how long)? @ -No Were there social determinants of health that impacted care today? How? (Homelessness, low income, unemployed, alcoholism, drug addiction, transportatio n, low edu. Level, literacy, decrease access to med. care, longterm, rehab)? @ -No Was there de-escalation of care discussed even if they declined (Discuss DNR or withdrawal of care, Hospice)? DNR status @ -No What co-morbidities impacted this encounter? (DM, HTN, Smoking, COPD, CAD, Cancer, CVA, ARF, Chemo, Hep., AIDS, mental health diagnosis, sleep apnea, morbid obesity)? @ -None Was patient admitted / discharged? Hospital course, mention meds given and route, prescriptions, significant lab abnormalities, going to OR and other pertinent info. @ -Discharged patient feels great improved with IV fluids and antiemetics. Patient does have bowel gas pain, cramping type symptoms. Patient be discharged on Bentyl continuation of antiemetics return parameters michael. Undiagnosed new problem with uncertain prognosis? @ -No Drug Therapy requiring intensive monitoring for toxicity (Heparin, Nitro, Insu maribel, Cardizem)? @ -No Were any procedures done? @ -No Diagnosis/symptom? @ -Pain abdominal Acute, or Chronic, or Acute on Chronic? @ -Acute Uncomplicated (without systemic symptoms) or Complicated (systemic symptoms)? @ -Complicated Side effects of treatment? @ -No Exacerbation, Progression, or Severe Exacerbation? @ -No Poses a threat to life or bodily function? How? (Chest pain, [place], [place], pneumonia, PE, COPD, DKA, ARF, appy, cholecystitis, CVA, Diverticulitis, Homicidal, Suicidal, threat to staff... and all critical care pts) @ -No - Lab Data Result diagrams: 04/10/25 10:20 04/10/25 10:20 Lab Results 04/10/25 04/10/25 04/10/25 Range/Units 10:20 10:20 10:20 WBC 11.50 H (4.50-10.00) 10*3/uL RBC 5.29 H (4.10-5.20) 10*6/uL Hgb 16.4 H (12.0-15.0) g/dL Hct 47.9 H (37.2-46.3) % MCV 90.5 (80.0-97.0) fL MCH 31.0 (27.0-32.0) pg MCHC 34.2 (32.0-37.0) g/dL Plt Count 256 (140-440) 10*3/uL MPV 10.4 (9.5-12.2) fL Immature Gran % (Auto) 0.3 % Neutrophils % 72.1 % Lymphocytes % 21.4 % Monocytes % 4.9 % Eosinophils % 0.7 % Basophils % 0.6 % Immature Gran # 0.03 (0.00-0.04) 10*3/uL Neutrophils # 8.30 H (1.80-7.70) 10*3/uL Lymphocytes # 2.46 (0.90-5.00) 10*3/uL Monocytes # 0.56 (0.20-1.00) 10*3/uL Eosinophils # 0.08 (0.04-0.35) 10*3/uL Basophils # 0.07 (0.00-0.10) 10*3/uL Sodium 140 (137-145) mmol/L Potassium 4.4 (3.5-5.1) mmol/L Chloride 104 (98-107) mmol/L Carbon Dioxide 23 (22-30) mmol/L Anion Gap 13 mmol/L BUN 10 (7-17) mg/dL Creatinine 0.69 (0.52-1.04) mg/dL Est GFR (CKD-EPI)AfAm >90 (>60 ml/min/1.73 sqM) Est GFR (CKD-EPI)NonAf >90 (>60 ml/min/1.73 sqM) Glucose 115 H (74-99) mg/dL Plasma Lactic Acid Rainer 1.6 (0.7-2.0) mmol/L Calcium 10.1 (8.4-10.2) mg/dL Magnesium 1.6 (1.6-2.3) mg/dL Total Bilirubin 0.4 (0.2-1.3) mg/dL AST 20 (14-36) U/L ALT 14 (4-34) U/L Alkaline Phosphatase 79 (38-126) U/L Troponin I (0.000-0.034) ng/mL Total Protein 6.9 (6.3-8.2) g/dL Albumin 4.2 (3.5-5.0) g/dL Lipase 416 H (23-300) U/L Urine Color Urine Appearance (Clear) Urine pH (5.0-8.0) Ur Specific [place] (1.001-1.035) Urine Protein (Negative) Urine Glucose (UA) (Negative) Urine Ketones (Negative) Urine Blood (Negative) Urine Nitrite (Negative) Urine Bilirubin (Negative) Urine Urobilinogen (<2.0) mg/dL Ur Leukocyte Esterase (Negative) Serum Alcohol <10 mg/dL 04/10/25 04/10/25 Range/Units 10:20 10:47 WBC (4.50-10.00) 10*3/uL RBC (4.10-5.20) 10*6/uL Hgb (12.0-15.0) g/dL Hct (37.2-46.3) % MCV (80.0-97.0) fL MCH (27.0-32.0) pg MCHC (32.0-37.0) g/dL Plt Count (140-440) 10*3/uL MPV (9.5-12.2) fL Immature Gran % (Auto) % Neutrophils % % Lymphocytes % % Monocytes % % Eosinophils % % Basophils % % Immature Gran # (0.00-0.04) 10*3/uL Neutrophils # (1.80-7.70) 10*3/uL Lymphocytes # (0.90-5.00) 10*3/uL Monocytes # (0.20-1.00) 10*3/uL Eosinophils # (0.04-0.35) 10*3/uL Basophils # (0.00-0.10) 10*3/uL Sodium (137-145) mmol/L Potassium (3.5-5.1) mmol/L Chloride (98-107) mmol/L Carbon Dioxide (22-30) mmol/L Anion Gap mmol/L BUN (7-17) mg/dL Creatinine (0.52-1.04) mg/dL Est GFR (CKD-EPI)AfAm (>60 ml/min/1.73 sqM) Est GFR (CKD-EPI)NonAf (>60 ml/min/1.73 sqM) Glucose (74-99) mg/dL Plasma Lactic Acid Rainer (0.7-2.0) mmol/L Calcium (8.4-10.2) mg/dL Magnesium (1.6-2.3) mg/dL Total Bilirubin (0.2-1.3) mg/dL AST (14-36) U/L ALT (4-34) U/L Alkaline Phosphatase (38-126) U/L Troponin I <0.012 (0.000-0.034) ng/mL Total Protein (6.3-8.2) g/dL Albumin (3.5-5.0) g/dL Lipase (23-300) U/L Urine Color Colorless Urine Appearance Clear (Clear) Urine pH 7.5 (5.0-8.0) Ur Specific [place] 1.008 (1.001-1.035) Urine Protein Negative (Negative) Urine Glucose (UA) Negative (Negative) Urine Ketones Negative (Negative) Urine Blood Negative (Negative) Urine Nitrite Negative (Negative) Urine Bilirubin Negative (Negative) Urine Urobilinogen <2.0 (<2.0) mg/dL Ur Leukocyte Esterase Negative (Negative) Serum Alcohol mg/dL Disposition Clinical Impression: Abdominal pain Disposition: HOME SELF-CARE Condition: Stable Instructions (If sedation given, give patient instructions): Abdominal Pain (ED) Additional Instructions: Please return to the Emergency Department if symptoms worsen or any other concerns. Prescriptions: Dicyclomine [Bentyl] 20 mg PO TID #30 tablet Is patient prescribed a controlled substance at d/c from ED?: No Referrals: Kvng Rm MD [Primary Care Provider] - 1-2 days Time of Disposition: 13:31
[2025-04-10] MEDS: ONDANSETRON 4 MG/2 ML VIAL IVP STA (10:46)
[2025-04-10] MEDS: SODIUM CHLORIDE 0.9% 1,000 ML IV ONE (10:46)
[2025-04-10 11:02] LABS: Appearance,Urine Clear (Clear); Bilirubin,Urine Negative (Negative); Blood,Urine Negative (Negative); Color,Urine Colorless; Glucose,Urine (UA) Negative (Negative); Ketones,Urine Negative (Negative); Leukocyte Esterase,Urine Negative (Negative); Nitrite,Urine Negative (Negative); PH, Urine 7.5 (5.0-8.0); Protein,Urine Negative (Negative); Specific Gravity,Urine 1.008 (1.001-1.035); Urobilinogen,Urine <2.0 mg/dL (<2.0)
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
[2025-04-10] MEDS: droPERidol 5 MG/2 ML VIAL IVP ONE (12:53)
[2025-04-10 13:47] VITALS: BP 162/104; PULSE 84; RESP 20; TEMP 98.3
== END 2025-04-10 13:46 | disposition home or self-care (01) ==
LOC: EC 09:39
DX: R10.31 Right lower quadrant pain (principal); F17.200 Nicotine dependence, unspecified, uncomplicated; Z88.0 Allergy status to penicillin; Z88.5 Allergy status to narcotic agent; Z88.8 Allergy status to other drugs, medicaments and biological substances
CPT/HCPCS: 36415; 93005; 80053; 83605; 83690; 83735; 84484; 85025; 81003; 74177; 99285; 96374; 96375; 96361 ×2; G0480; J2405; Q9967; J1790; 80320